=== PATIENT | male | born 1990 | race Caucasian/White ===

== ENCOUNTER 2017-01-29 22:48 | Emergency (ER) | payer OTHER ==
[~2017-01-29] VITALS: Ht 185.4 cm; Wt 149.7 kg
[2017-01-29] MEDS ORDERED: DICL25TA PO (23:00)
[2017-01-29] MEDS ORDERED: TIZA4CAP8 PO (23:00)
--- NOTE | 2017-01-29 23:56 | ED Back Pain ---
General Chief Complaint: Back Problems Stated Complaint: LOWER BACK/R LEG PAIN Nursing Triage Note: worsened chronic low back pain. Nursing Sepsis Screen: No Definite Risk Source of Information: Patient, Other Exam Limitations: No Limitations History of Present Illness Time Seen by Provider: 23:47 Initial Comments Patient presents to ER by private conveyance with chief complaint of lower back pain radiating from his right lumbar down to his right leg just past the knee. 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 Past couple days he's had some flare of his pain that has progressively gotten worse. He denies any falls, weakness, numbness, paralysis, incontinence of bowel or bladder. He says their next step was to do steroid injections and he gotten one steroid injection already about 6 months ago. If he felt that therapy then the next step was to consider surgery. He says he has a herniated disc in his low back. He denies any recent trauma or falls or fights or car wrecks. Allergies and Home Medications Allergies Coded Allergies: zinc (Verified Allergy, Unknown, 01/29/17) Home Medications Diclofenac Sodium 25 Mg Tablet.dr, Unknown Dose PO, (Reported) Tizanidine HCl 4 Mg Capsule, Unknown Dose PO, (Reported) Constitutional: No chills, No diaphoresis EENTM: No ear discharge, No ear pain Respiratory: No cough, No short of breath Cardiovascular: No chest pain, No palpitations Gastrointestinal: No abdominal pain, No constipation, No diarrhea, No dysphagia , No nausea Genitourinary: No discharge, No dysuria Musculoskeletal: see HPI, back pain, No joint pain Skin: No change in color, No pruritus, No rash Psychiatric/Neurological: Denies Headache, Denies Numbness, Paresthesia Past Tvwtusw-Ohpgxn-Xozgsl Hx Patient Social History Alcohol Use: Denies Use Recreational Drug Use: No Smoking Status: Never a Smoker 2nd Hand Smoke Exposure: No Recent Foreign Travel: No Contact w/Someone Who Travel: No Recent Infectious Disease Expo: No Recent Hopitalizations: No Immunizations Up To Date Tetanus Booster (TDap): Unknown Seasonal Allergies Seasonal Allergies: No Surgeries History of Surgeries: Yes (dental, cyst removal) Respiratory History of Respiratory Disorde: No Cardiovascular History of Cardiac Disorders: Yes Cardiac Disorders: Hypertension Neurological History of Neurological Disord: No Genitourinary History of Genitourinary Disor: No Gastrointestinal History of Gastrointestinal Di: No Musculoskeletal History of Musculoskeletal Dis: Yes Musculoskeletal Disorders: Degenerate Disk Disease, Chronic Back Pain Endocrine History of Endocrine Disorders: Yes (low blood glucose) HEENT History of HEENT Disorders: No Cancer History of Cancer: No Psychosocial History of Psychiatric Problem: No Integumentary History of Skin or Integumenta: No Blood Transfusions History of Blood Disorders: No Physical Exam Vital Signs Vital Sign - Last 12Hours 01/29/17 22:59 Temp 97.2 Pulse 91 Resp 18 B/P (MAP) 126/77 Pulse Ox 97 O2 Delivery Room Air Capillary Refill : Less Than 3 Seconds General Appearance: WD/WN, Mild Distress HEENT: PERRL/EOMI, Pharynx Normal Neck: Full Range of Motion, Normal Inspection Cardiovascular: Regular Rate, Rhythm, No Murmur, Normal Peripheral Pulses Respiratory: Chest Non Tender, Lungs Clear, Normal Breath Sounds Peripheral Pulses: 2+ Dorsalis Pedis (R), 2+ Left Dors-Pedis (L) Gastrointestinal: Non Tender, Soft Back: Normal Inspection, No Vertebral Tenderness, Other (right L5-S1 facet joint. Tender to palpation and re-creates his sciatic pain symptoms.) Extremity: Normal Capillary Refill, Non Tender, No Calf Tenderness, No Pedal Edema Neurologic/Psychiatric: Alert, Oriented x3, No Motor/Sensory Deficits, Normal Mood/Affect Skin: Normal Color, Warm/Dry Progress/Results/Core Measures Results/Orders My Orders Orders - TASHA STOUT Lidocaine 1% Injection (Xylocaine 1% Inj (01/30/17 00:00) Bupivacaine 0.5% Injection (Sensorcaine (01/30/17 00:00) Methylprednisolone Acetate Inj (Depo-Med (01/30/17 00:00) Medications Given in ED Current Medications Medications Dose Ordered Sig/Paulette Route Start Time Stop Time Status Last Admin Dose Admin Bupivacaine HCl 30 ml ONCE ONCE INJ 01/30/17 00:00 01/30/17 00:01 DC 01/30/17 00:00 30 ML Lidocaine HCl 20 ml ONCE ONCE INJ 01/30/17 00:00 01/30/17 00:01 DC 01/30/17 00:00 20 ML Methylprednisolone Acetate 80 mg ONCE ONCE IA 01/30/17 00:00 01/30/17 00:01 DC 01/29/17 23:59 80 MG Vital Signs/I&O Vital Sign - Last 12Hours 01/29/17 01/30/17 01/30/17 22:59 00:00 00:00 Temp 97.2 97.2 97.2 Pulse 91 Resp 18 B/P (MAP) 126/77 Pulse Ox 97 O2 Delivery Room Air Blood Pressure Mean: 93 Departure Impression Impression: Primary Impression: Lumbar radiculopathy Additional Impression: Sciatica associated with disorder of lumbar spine Disposition: HOME, SELF-CARE Condition: Stable Departure-Patient Inst. Decision time for Depature: 00:21 Referrals: NO,LOCAL PHYSICIAN (PCP/Family) Primary Care Physician Patient Instructions: Low Back Pain (DC), Radiculopathy (DC) Add. Discharge Instructions: Plan on establishing care with a local primary care physician for further workup of your back. He should see some improvement from the steroid injection in about 24 hours. Continue to take your diclofenac as prescribed for the next 2 weeks scheduled. He may also take Tylenol 1000 mg every 8 hours for breakthrough pain. Heat to your back may also help. Icy hot and a back brace would also be useful. If you're having back spasms you can use the Flexeril every 8 hours. All discharge instructions reviewed with patient and/or family. Voiced understanding. Scripts Cyclobenzaprine HCl (Cyclobenzaprine HCl) 10 Mg Tablet 10 MG PO Q8H Y for SPASMS, #20 TAB 0 Refills Prov: TASHA STOUT 01/30/17 Work/School Note: Work Release Form Date Seen in the Emergency Department: Jan 30, 2017 Return to Work: Feb 03, 2017 Restrictions: No Restrictions Copy Copies To 1: LAINA MCKINLEY TITUS J Jan 29, 2017 23:56
[2017-01-30] MEDS ORDERED: BUPIVACAINE 0.5% 30 ML (SENSORCAINE) VIAL INJ ONE
[2017-01-30] MEDS ORDERED: LIDOCAINE 1% INJ 20 ML (XYLOCAINE) VIAL INJ ONE
[2017-01-30] MEDS ORDERED: methylPREDNISolone 80 MG/ML (DEPO MEDROL) VIAL IA ONE
[2017-01-30] MEDS ORDERED: CYCL10TA9 PO (00:23)
[2017-01-30 00:26] VITALS: BP 122/74
== END 2017-01-30 00:28 | disposition home or self-care (01) ==
LOC: ER 22:52
DX: M51.16 Intervertebral disc disorders with radiculopathy, lumbar region (principal); I10 Essential (primary) hypertension
CPT/HCPCS: 99284

== ENCOUNTER 2018-10-10 07:52 | Emergency (ER) | payer BC, OTHER ==
[~2018-10-10] VITALS: Ht 185.4 cm; Wt 156.5 kg
[~2018-10-10 07:52] MED LIST: CYCL10TA9 PO; DICL25TA PO; TIZA4CAP8 PO
--- OUTSIDE RECORDS SUMMARY | 2018-10-10 07:57 | XMS REPORT | Continuity of Care Document ---
Author Organization Unknown Address Unknown Allergies There is no data. Medications There is no data. Problems There is no data. Procedures There is no data. Results There is no data. Encounters ACCT No. Visit Date/Time Discharge Status Pt. Type Provider Facility Loc./Unit Complaint [id number] 08/29/2018 09:20:00 08/29/2018 23:59:59 CLS Outpatient [facility]
[2018-10-10] MEDS ORDERED: BUPIVACAINE 0.5% 30 ML (SENSORCAINE) VIAL INJ ONE (08:15)
[2018-10-10] MEDS ORDERED: LIDOCAINE/EPI 2% 1:100,00 (XYLOCAINE) 20 ML VIAL INJ ONE (08:15)
[2018-10-10] MEDS ORDERED: methylPREDNISolone 40 MG/ML (DEPO MEDROL) VIAL IA ONE (08:15)
[2018-10-10] MEDS ORDERED: KETOROLAC 30 MG/ML VIAL IM ONE (08:15)
--- NOTE | 2018-10-10 08:16 | ED Back Pain ---
General Chief Complaint: Back Problems Stated Complaint: BACK/LEG PAIN Source of Information: Patient Exam Limitations: No Limitations History of Present Illness Date Seen by Provider: Oct 10, 2018 Time Seen by Provider: 07:55 Initial Comments Patient presents to ER by private conveyance with his mother and chief complaint that is 9 months post back laminectomy by Dr. Shpeherd. Couple weeks ago his pain started coming back significantly in his lower back radiating down his right leg. He's had no urinary incontinence or anesthesia but he has had some weakness in his leg where he had a fall a couple times in the last 2 weeks. 3 weeks ago he was started on Mobic 2 but he said it did not help so he was started in y sical therapy. He plans to go to physical therapy today but he says the pain was so intense that he was having a hard time even walking. He has no fevers chills diarrhea nausea vomiting or constipation. He's been using alternating Tylenol and ibuprofen 400 mg every 6 hours. His last dose of ibuprofen was yesterday 2:00 in the afternoon. He is on gabapentin. He left a phone message with his surgeon today. The plan was if physical therapy did not help to proceed to spinal injections. He is participating in exercise at the gym as well as water aerobics. He is not on a meal plan. He says his lost 15 pounds in the last 9 months intentionally. He uses tizanidine for muscle spasms. Allergies and Home Medications Allergies Coded Allergies: zinc (Verified Allergy, Unknown, 01/29/17) Home Medications Cyclobenzaprine HCl 10 Mg Tablet, 10 MG PO Q8H PRN for SPASMS Prescribed by: TASHA STOUT on 01/30/17 0023 Prednisone 20 Mg Tab, 40 MG PO DAILY Prescribed by: TASHA STOUT on 10/10/18 0823 Patient Home Medication List Home Medication List Reviewed: Yes Review of Systems Constitutional: No chills, No fever EENTM: No hearing loss, No ear pain Respiratory: No cough, No short of breath Cardiovascular: No chest pain, No edema Gastrointestinal: No abdominal pain, No nausea Genitourinary: No discharge, No dysuria Musculoskeletal: see HPI, back pain; No joint pain Skin: No pruritus, No rash Past Miibjjy-Bvxsoh-Ulwbiu Hx Patient Social History Alcohol Use: Denies Use Recreational Drug Use: No 2nd Hand Smoke Exposure: No Recent Foreign Travel: No Contact w/Someone Who Travel: No Recent Hopitalizations: No Physical Abuse: No Sexual Abuse: No Mistreated: No Fear: No Immunizations Up To Date Tetanus Booster (TDap): Unknown Seasonal Allergies Seasonal Allergies: No Past Medical History Surgeries: Yes (dental, cyst removal, back L5-S1) Respiratory: No Cardiac: Yes Hypertension Neurological: No Genitourinary: No Gastrointestinal: No Musculoskeletal: Yes Degenerate Disk Disease, Chronic Back Pain Endocrine: Yes (low blood glucose) HEENT: No Cancer: No Psychosocial: No Integumentary: No Blood Disorders: No Physical Exam Vital Signs Vital Signs - First Documented 10/10/18 07:57 Temp 98.1 Pulse 103 Resp 20 B/P (MAP) 161/109 (126) Pulse Ox 100 O2 Delivery Room Air Capillary Refill : Height, Weight, BMI Height: 6'1.00" Weight: 330lbs. oz. 149.380754id; BMI Method:Stated General Appearance: Mild Distress, Obese HEENT: PERRL/EOMI, Moist Mucous Membranes Neck: Full Range of Motion, Normal Inspection, Non Tender, Supple Cardiovascular: Regular Rate, Rhythm, Normal Peripheral Pulses Respiratory: No Accessory Muscle Use, No Respiratory Distress Peripheral Pulses: 2+ Radial Pulses (R), 2+ Radial Pulses (L) Back: Normal Inspection, Vertebral Tenderness (lumbar vertebral tenderness midline as well as the right L5-S1 facet joint direct palpation re-creates his s ymptoms.) Extremity: Normal Capillary Refill, Normal Inspection Neurologic/Psychiatric: Alert, Oriented x3, No Motor/Sensory Deficits, Other (slow, antalgic gait) Skin: Normal Color, Warm/Dry Procedures/Interventions Progress Patient was placed in the seated position on the bed and the skin over the L5-S1 facet joint was thoroughly cleaned with Betadine and then wiped with alcohol. The used a 3-1/2 inch 22-gauge spinal needle to access the joint space and injected 80 mg of Depo-Medrol, 3 mL of 2% lidocaine with epinephrine and 3 mL of 0.5% Marcaine. Patient tolerated procedure very well. Progress/Results/Core Measures Results/Orders My Orders Orders - TASHA STOUT Ketorolac Injection (Toradol Injection) (10/10/18 08:15) Methylprednisolone Acetate Inj (Depo-Med (10/10/18 08:15) Lidocaine/Epi 2% 1:100,000 (Xylocaine/Ep (10/10/18 08:15) Bupivacaine 0.5% Injection (Sensorcaine (10/10/18 08:15) Medications Given in ED Current Medications Medications Dose Ordered Sig/Paulette Route Start Time Stop Time Status Last Admin Dose Admin Bupivacaine HCl 30 ml ONCE ONCE INJ 10/10/18 08:15 10/10/18 08:16 DC 10/10/18 08:21 30 ML Ketorolac Tromethamine 60 mg ONCE ONCE IM 10/10/18 08:15 10/10/18 08:16 DC 10/10/18 08:20 60 MG Lidocaine/ Epinephrine 20 ml ONCE ONCE INJ 10/10/18 08:15 10/10/18 08:16 DC 10/10/18 08:21 20 ML Methylprednisolone Acetate 80 mg ONCE ONCE IA 10/10/18 08:15 10/10/18 08:16 DC 10/10/18 08:22 80 MG Vital Signs/I&O 10/10/18 07:57 Temp 98.1 Pulse 103 Resp 20 B/P (MAP) 161/109 (126) Pulse Ox 100 O2 Delivery Room Air Progress Progress Note : Time: 08:15 Progress Note Plan to give him Toradol and we have discussed starting steroids and a shot in his L5-S1 facet joint with lidocaine and Marcaine. Departure Impression Primary Impression: Lumbago with sciatica, right side Qualified Codes: M54.41 - Lumbago with sciatica, right side; G89.29 - Other chronic pain Disposition: 01 HOME, SELF-CARE Condition: Stable Departure-Patient Inst. Decision time for Depature: 08:33 Referrals: NO,LOCAL PHYSICIAN (PCP/Family) Primary Care Physician Patient Instructions: Low Back Pain (DC) Add. Discharge Instructions: Apply heat to your back, wear a back brace when possible and use topical creams such as icy hot and Biofreeze etc. Tylenol 1000 mg every 8 hours as necessary for pain. Ibuprofen 800 mg every 8 hours as necessary for pain. edging supervisor the prednisone and use 2 tablets daily for the next 5 days. Continue your low impact exercise program. Look into a meal plan to assisted living or weight loss goals. Follow-up with your surgeon. Continue your prescribed medicines. All discharge instructions reviewed with patient and/or family. Voiced understanding. Scripts Prednisone (Prednisone) 20 Mg Tab 40 MG PO DAILY for 5 Days, #10 TAB 0 Refills Prov: TASHA STOUT 10/10/18 TASHA STOUT Oct 10, 2018 08:16
--- NOTE | 2018-10-10 08:20 | NUR ---
set up for Dr Julien for back injection
[2018-10-10] MEDS ORDERED: PRD20T PO (08:23)
--- NOTE | 2018-10-10 08:30 | NUR ---
dr guerrero in room to do back injection
[2018-10-10] MEDS ORDERED: GABAPENTIN 300 MG CAPS (08:34)
[2018-10-10] MEDS ORDERED: TRAZODONE HCL 50 MG TABS (08:34)
[2018-10-10] MEDS ORDERED: CITALOPRAM HYDROBROMIDE 20 MG (08:34)
[2018-10-10 08:40] VITALS: BP 149/101
== END 2018-10-10 08:40 | disposition home or self-care (01) ==
LOC: EDUNIT# 07:52 → ER 07:53
DX: M54.41 Lumbago with sciatica, right side (principal); I10 Essential (primary) hypertension; Z98.1 Arthrodesis status; Z88.8 Allergy status to other drugs, medicaments and biological substances; Z79.52 Long term (current) use of systemic steroids
CPT/HCPCS: 96372; 99284

== ENCOUNTER 2018-12-04 03:11 | Emergency (ER) | payer BC ==
[~2018-12-04] VITALS: Ht 185.4 cm; Wt 156.5 kg
[~2018-12-04 03:11] MED LIST changes: +CITALOPRAM HYDROBROMIDE 20 MG; +GABAPENTIN 300 MG CAPS; +PRD20T PO; +TRAZODONE HCL 50 MG TABS
--- OUTSIDE RECORDS SUMMARY | 2018-12-04 03:19 | XMS REPORT | Continuity of Care Document ---
Author Organization Unknown Address Unknown Phone Unavailable Allergies There is no data. Medications There is no data. Problems There is no data. Procedures There is no data. Results There is no data. Encounters ACCT No. Visit Date/Time Discharge Status Pt. Type Provider Facility Loc./Unit Complaint [id number] 11/20/2018 09:20:00 11/20/2018 23:59:59 CLS Outpatient [facility], [facility]
[2018-12-04] MEDS ORDERED: BUP/EPI 0.5% 1:200,000 (SENSORCAINE) 30 ML VIAL INJ ONE (04:00)
[2018-12-04] MEDS ORDERED: LIDOCAINE 1% INJ 20 ML 20 ML VIAL INJ ONE (04:00)
[2018-12-04] MEDS ORDERED: KETOROLAC 30 MG/ML VIAL IVP ONE (04:00)
[2018-12-04] MEDS ORDERED: LIDOCAINE 2% VISCOUS 15 ML UDC PO ONE (04:00)
[2018-12-04] MEDS ORDERED: AMOX500C2 PO (04:03)
--- NOTE | 2018-12-04 04:03 | ED EENT ---
History of Present Illness General Chief Complaint: Dental Problems/Pain Stated Complaint: POSS ABSCESSED TOOTH,SWOLLEN JAW Source: patient, family (mom) Exam Limitations: no limitations History of Present Illness Date Seen by Provider: Dec 04, 2018 Time Seen by Provider: 03:47 Initial Comments Patient presents to ER by private conveyance with mom and chief complaint that he's for a week now had some swelling and pain after he cracked a tooth in his left lower molar. He thinks he now has an abscess. No fevers chills nausea vomiting. Take ibuprofen 800 mg every 8 hours. Pain woke him up from sleep tonight and he could not get back to sleep. Not on antibiotics. Has not seen a dentist. He occasionally smokes marijuana but he does not use tobacco products drink alcohol or other recreational drugs. Allergies and Home Medications Allergies Coded Allergies: zinc (Verified Allergy, Unknown, 10/10/18) Home Medications Amoxicillin 500 Mg Capsule, 500 MG PO TID Prescribed by: TASHA STOUT on 12/04/18 0403 Cyclobenzaprine HCl 10 Mg Tablet, 10 MG PO Q8H PRN for SPASMS Prescribed by: TASHA STOUT on 01/30/17 0023 Prednisone 20 Mg Tab, 40 MG PO DAILY Prescribed by: TASHA STOUT on 10/10/18 0823 Patient Home Medication List Home Medication List Reviewed: Yes Review of Systems Review of Systems Constitutional: No chills, No diaphoresis Eyes: Denies Blindness, Denies Blurred Vision Ears: Denies Dizziness, Denies Pain Nose: denies clots, denies congestion Mouth: see HPI; denies clots; pain, swelling Throat: denies pain, denies swelling Respiratory: No cough, No short of breath Past Tcicekg-Jfkmsy-Dtkfbd Hx Patient Social History Alcohol Use: Denies Use Recreational Drug Use: Yes Drug of Choice: occ MJ Smoking Status: Never a Smoker 2nd Hand Smoke Exposure: No Recent Foreign Travel: No Contact w/Someone Who Travel: No Recent Hopitalizations: No Immunizations Up To Date Tetanus Booster (TDap): Unknown Seasonal Allergies Seasonal Allergies: No Past Medical History Surgeries: Yes (dental, cyst removal, back L5-S1) Respiratory: No Cardiac: Yes Hypertension Neurological: No Genitourinary: No Gastrointestinal: No Musculoskeletal: Yes Degenerate Disk Disease, Chronic Back Pain Endocrine: Yes (low blood glucose) HEENT: No Cancer: No Psychosocial: No Integumentary: No Blood Disorders: No Physical Exam Vital Signs Vital Signs - First Documented 12/04/18 03:30 Temp 97.4 Pulse 109 Resp 18 B/P (MAP) 165/99 (121) Height, Weight, BMI Height: 6'1.00" Weight: 345lbs. oz. 156.738996fo; BMI Method:Stated General Appearance: WD/WN, mild distress Eyes: bilateral eye normal inspection, bilateral eye PERRL, bilateral eye EOMI Ears: bilateral ear auricle normal, bilateral ear canal normal Nose: normal inspection; No active bleeding Mouth/Throat: other (moderate to extensive dental caries with swelling of the soft tissues and gingiva around the lower left molars that is exquisitely tender to palpation. No evidence of fluctuance or abscess.) Procedures/Interventions Additional Procedures: Peripheral Nerve Block Progress Patient was placed supine position with mouth open and using her fingers. Palpated the landmarks of the left mandibular ramus. We will place the needle just superior to the exit of the alveolar nerve and injected 1-1/2 cc of 1% lidocaine as well as 1/2 cc of 0.5% bupivacaine without epinephrine. Patient had Zaragoza anesthesia and tolerated the procedure well. The used a 1-1/2 inch 25- gauge needle. Progress/Results/Core Measures Results/Orders My Orders Orders - TASHA STOUT Ketorolac Injection (Toradol Injection) (12/04/18 04:00) Lidocaine 2% Viscous 15 Ml (Xylocaine Vi (12/04/18 04:00) Lidocaine 1% Inj 20 Ml (Xylocaine 1% Inj (12/04/18 04:00) Bupivacaine 0.5% W/Epi Inj (Sensorcaine (12/04/18 04:00) Bupivacaine 0.5% Injection (Sensorcaine (12/04/18 04:15) Medications Given in ED Current Medications Medications Dose Ordered Sig/Paulette Route Start Time Stop Time Status Last Admin Dose Admin Bupivacaine HCl 30 ml ONCE ONCE INJ 12/04/18 04:15 12/04/18 04:16 DC 12/04/18 04:09 1.5 ML Lidocaine HCl 15 ml ONCE ONCE PO 12/04/18 04:00 12/04/18 04:01 DC 12/04/18 04:09 15 ML Lidocaine HCl 20 ml ONCE ONCE INJ 12/04/18 04:00 12/04/18 04:01 DC 12/04/18 04:08 1.5 ML Vital Signs/I&O 12/04/18 03:30 Temp 97.4 Pulse 109 Resp 18 B/P (MAP) 165/99 (121) Progress Progress Note : Time: 04:01 Progress Note Plan to do an inferior alveolar nerve block 1% lidocaine and 0.5% Marcaine with epinephrine. Viscous lidocaine take-home pack, amoxicillin. Departure Impression Primary Impression: Dental abscess Disposition: HOME, SELF-CARE Condition: Improved Departure-Patient Inst. Decision time for Depature: 04:01 Referrals: MICHAEL BURR MD (PCP) Primary Care Physician [facility] (Family) Primary Care Physician Patient Instructions: Dental Pain (DC) Add. Discharge Instructions: Continue to use ibuprofen 800 mg every 8 hours as necessary for pain. Tylenol 1000 mg every 8 hours as necessary for pain. Warm compresses applied outside the cheek. Take the amoxicillin one capsule 3 times a day for the next week. Follow-up with the dentist. Viscous lidocaine applied directly to some gauze and push down over the painful tooth every 4 hours as needed for breakthrough pain. All discharge instructions reviewed with patient and/or family. Voiced understanding. Scripts Amoxicillin (Amoxicillin) 500 Mg Capsule 500 MG PO TID, #21 CAP 0 Refills Prov: TASHA STOUT 12/04/18 TASHA STOUT Dec 04, 2018 04:03
[2018-12-04] MEDS ORDERED: BUPIVACAINE 0.5% 30 ML (SENSORCAINE) VIAL INJ ONE (04:15)
[2018-12-04 04:22] VITALS: BP 160/98
== END 2018-12-04 04:24 | disposition home or self-care (01) ==
LOC: EDUNIT# 03:11 → ER 03:15
DX: K04.7 Periapical abscess without sinus (principal); I10 Essential (primary) hypertension; F12.10 Cannabis abuse, uncomplicated; Z88.8 Allergy status to other drugs, medicaments and biological substances; Z79.52 Long term (current) use of systemic steroids
CPT/HCPCS: 99283

== ENCOUNTER 2019-01-05 08:34 | Emergency (ER) | payer BC ==
[~2019-01-05] VITALS: Ht 185.4 cm; Wt 156.5 kg
[~2019-01-05 08:34] MED LIST changes: +AMOX500C2 PO
[2019-01-05] MEDS ORDERED: EPINEPHrine INJECTION 1 MG/ML AMP ONE (09:13)
--- NOTE | 2019-01-05 09:27 | ED Back Pain ---
General Chief Complaint: Back Problems Stated Complaint: BACK PAIN Nursing Triage Note: PT TO ROOM 07 VIA W/C WITH C/O BACK PAIN STARTING SUNDAY. PT STATES HE HAS HAD BACK SURGERY A COUPLE YEARS AGO. PAIN STARTED SUNDAY BUT IS WORSE TODAY. PT STATES HAS TRIED OTC MEDS WITHOUT RELIEF. Nursing Sepsis Screen: No Definite Risk Source of Information: Patient, Family Exam Limitations: No Limitations History of Present Illness Date Seen by Provider: Jan 05, 2019 Time Seen by Provider: 09:06 Initial Comments Patient presents to ER by private conveyance with his significant other and chief complaint for the past several days been having progressively worsening acute exacerbation of his chronic back pain. He says he feels it in his thoracic back just above where he had his lumbar laminectomy for spinal stenosis by Dr. Allen at [place], [place] and January 2018. He is now feeling some pain radiating around to his left flank spasm and worsening of his chronic sciatica down his right leg to the point his foot is numb he has decreased sensation in his calf up to the level of the knee. He does not have any urinary hesitancy or difficulty urinating but is worried with this flank pain about a bladder infection. He's not had bladder infections before. No fevers chills cough shortness of breath. No itching or burning or rash at the site of the left flank pain. He has been using ibuprofen 800 mg 3 times a day with his last dose being last night. He has also used his cyclobenzaprine 3 times a day 10 mg. He does not use opiates. He was referred by his surgeon to go to pain management and they wanted to do epidurals but he could not afford the co-pay so he has not done that yet. He was following with [facility] but is now planning to set up with [facility] [place]. He was in physical therapy but was told he needs another prescription that he wants to come back. Using topical creams, lidocaine, salon pas, Voltaren. He has not been on steroids for about 6 months. Allergies and Home Medications Allergies Coded Allergies: zinc (Verified Allergy, Unknown, 10/10/18) Home Medications Amoxicillin 500 Mg Capsule, 500 MG PO TID Prescribed by: TASHA STOUT on 12/04/18 0403 Cyclobenzaprine HCl 10 Mg Tablet, 10 MG PO Q8H PRN for SPASMS Prescribed by: TASHA STOUT on 01/30/17 0023 Prednisone 20 Mg Tab, 40 MG PO DAILY Prescribed by: TASHA STOUT on 10/10/18 0823 Patient Home Medication List Home Medication List Reviewed: Yes Review of Systems Constitutional: No chills, No diaphoresis EENTM: No ear discharge, No ear pain Respiratory: No cough, No short of breath Cardiovascular: No chest pain, No palpitations Gastrointestinal: No abdominal pain, No constipation, No diarrhea, No nausea Genitourinary: No discharge, No dysuria, No hematuria, No hesitancy Musculoskeletal: see HPI, back pain Psychiatric/Neurological: See HPI, Numbness (right foot) Past Kvxqwvd-Qppoic-Ibqupk Hx Patient Social History Alcohol Use: Rarely Uses Recreational Drug Use: Yes Drug of Choice: occ MJ Smoking Status: Never a Smoker 2nd Hand Smoke Exposure: No Recent Foreign Travel: No Contact w/Someone Who Travel: No Recent Infectious Disease Expo: No Recent Hopitalizations: No Immunizations Up To Date Tetanus Booster (TDap): Unknown Seasonal Allergies Seasonal Allergies: No Past Medical History Surgeries: Yes (dental, cyst removal, back L5-S1) Respiratory: No Cardiac: Yes Hypertension Neurological: No Genitourinary: No Gastrointestinal: No Musculoskeletal: Yes Degenerate Disk Disease, Chronic Back Pain Endocrine: Yes (low blood glucose) HEENT: No Cancer: No Psychosocial: Yes Sleep Difficulties Integumentary: No Blood Disorders: No Physical Exam Vital Signs Vital Signs - First Documented 01/05/19 09:09 Temp 98.0 Pulse 115 Resp 20 B/P (MAP) 168/124 (139) Pulse Ox 99 O2 Delivery Room Air Capillary Refill : Less Than 3 Seconds Height, Weight, BMI Height: 6'1.00" Weight: 345lbs. oz. 156.481330dt; BMI Method:Stated General Appearance: WD/WN, Mild Distress HEENT: Pharynx Normal, Moist Mucous Membranes Neck: Full Range of Motion, Normal Inspection Cardiovascular: Regular Rate, Rhythm, No Edema Respiratory: Lungs Clear, Normal Breath Sounds, No Accessory Muscle Use, No Respiratory Distress Peripheral Pulses: 2+ Dorsalis Pedis (R), 2+ Left Dors-Pedis (L) Back: Normal Inspection, Muscle Spasm (bilateral thoracic and lumbar spine), Vertebral Tenderness (thoracic and lumbar spine), Other (reach remission of sciatic symptoms and pain on direct palpation over L5-S1 facet joint on the right) Extremity: Normal Capillary Refill, Non Tender, No Calf Tenderness Neurologic/Psychiatric: Alert, Oriented x3; No Motor Weakness; Sensory Deficit (decreased sensation right lower extremity below the knee) Skin: Normal Color, Warm/Dry; No Rash Progress/Results/Core Measures Results/Orders Lab Results Laboratory Tests Test 01/05/19 09:46 Range/Units Urine Color YELLOW Urine Clarity CLEAR Urine pH 5 5-9 Urine Specific [place] 1.020 1.016-1.022 Urine Protein NEGATIVE NEGATIVE Urine Glucose (UA) NEGATIVE NEGATIVE Urine Ketones NEGATIVE NEGATIVE Urine Nitrite NEGATIVE NEGATIVE Urine Bilirubin NEGATIVE NEGATIVE Urine Urobilinogen NORMAL NORMAL MG/DL Urine Leukocyte Esterase NEGATIVE NEGATIVE Urine RBC (Auto) NEGATIVE NEGATIVE Urine RBC NONE /HPF Urine WBC RARE /HPF Urine Squamous Epithelial Cells RARE /HPF Urine Crystals NONE /LPF Urine Bacteria NEGATIVE /HPF Urine Casts NONE /LPF Urine Mucus SMALL H /LPF Urine Culture Indicated NO My Orders Orders - TASHA STOUT Epinephrine 1 Mg Injection (Adrenalin I (01/05/19 09:13) Methylprednisolone Acetate Inj (Depo-Med (01/05/19 09:30) Bupivacaine 0.5% W/Epi Inj (Sensorcaine (01/05/19 09:30) Lidocaine 1% Inj 20 Ml (Xylocaine 1% Inj (01/05/19 09:30) Ketorolac Injection (Toradol Injection) (01/05/19 09:30) Orphenadrine Injection (Norflex Injectio (01/05/19 09:30) Ua Culture If Indicated (01/05/19 09:20) Ct Thoracic/Lumbar Spine Wo (01/05/19 09:22) Ketorolac Injection (Toradol Injection) (01/05/19 09:45) Orphenadrine Injection (Norflex Injectio (01/05/19 09:45) Ketorolac Injection (Toradol Injection) (01/05/19 10:15) Medications Given in ED Current Medications Medications Dose Ordered Sig/Paulette Route Start Time Stop Time Status Last Admin Dose Admin Bupivacaine HCl/ Epinephrine Bitart 10 ml ONCE ONCE INJ 01/05/19 09:30 01/05/19 09:31 DC 01/05/19 09:50 10 ML Ketorolac Tromethamine 30 mg ONCE ONCE IVP 01/05/19 09:45 01/05/19 09:46 DC 01/05/19 09:35 30 MG Ketorolac Tromethamine 30 mg ONCE ONCE IVP 01/05/19 10:15 01/05/19 10:16 DC 01/05/19 10:36 30 MG Lidocaine HCl 20 ml ONCE ONCE INJ 01/05/19 09:30 01/05/19 09:31 DC 01/05/19 09:50 20 ML Methylprednisolone Acetate 80 mg ONCE ONCE IA 01/05/19 09:30 01/05/19 09:31 DC 01/05/19 09:50 80 MG Orphenadrine Citrate 60 mg ONCE ONCE IV 01/05/19 09:45 01/05/19 09:46 DC 01/05/19 09:38 60 MG Vital Signs/I&O 01/05/19 09:09 Temp 98.0 Pulse 115 Resp 20 B/P (MAP) 168/124 (139) Pulse Ox 99 O2 Delivery Room Air Blood Pressure Mean: 139 Progress Progress Note : Time: 09:30 Progress Note Does not appear to be shingles. Appears to be a exacerbation of his chronic back pain. Plan to give him Depo-Medrol, bupivacaine and lidocaine at the L5-S1 facet joint to help with his right leg sciatica. Plan to get imaging since he's having new numbness at the level of his right foot. He says he had a benign nodule found at the thoracic level on the left side by his surgeon and she told him not to worry about it that they would just reimage it 6 months but he never followed up for imaging. He has had MRIs of his back prior to the surgery in January 2018 but this was done at [place]. The plan would be to do a noncontrast CT of the thoracolumbar spine for any acute changes. If not then we'll do steroids, numbing medicine, put him on prednisone and given some Toradol and Norflex. Urinalysis Diagnostic Imaging Diagonstic Imaging: CT (without IV contrast) Plain Films/CT/US/NM/MRI: other (thoracolumbar spine.) Comments NAME: JANELL AGUILAR Delia MED REC#: [id number] PT STATUS: REG ER : 1990 PHYSICIAN: TASHA STOUT MD ADMIT DATE: 01/05/19/ER Draft Date of Exam:01/05/19 CT THORACIC/LUMBAR SPINE WO PROCEDURE: CT thoracic and lumbar spine without contrast. TECHNIQUE: Multiple contiguous axial images were obtained through the thoracic and lumbar spine without the use of intravenous contrast. Sagittal and coronal reformations were then performed. Date: January 05, 2019. Indication: 28-year-old male, mid and lower back pain extending to the right leg. Comparison: None. Findings: There are bilateral laminectomy changes of L5, L4, and L3. There are very mild facet degenerative changes bilaterally at L2-L3. The alignment of the lumbar spine is unremarkable. There are posterior disc osteophyte complexes at L1-L2, L2-L3, L3-L4, and L4-L5. CT is limited for assessment of disc pathology as well as additional non-bony causes of foraminal and spinal stenosis. This evaluation would be more optimal with MRI. There is no identified compression deformity or other fracture of the lumbar spine. The sacroiliac joints are unremarkable in their partially visualized portions. The alignment of the thoracic spine is unremarkable. There is no identified thoracic spine compression deformity or fracture. There are mild disc degenerative changes of the thoracic spine. There is no identified bone lesion. The visualized portions of the lungs are clear. Impression: 1. Bilateral laminectomy changes of L3, L4, and L5. 2. Multilevel disc degenerative changes of the lumbar spine with posterior disc osteophyte complexes at L1-L2, L2-L3, L3-L4, and L4-L5. CT is limited for assessment of disc pathology as well as evaluation of additional non-bony causes of foraminal and spinal stenosis. This would be more optimally evaluated with MRI. 3. Unremarkable alignment of the thoracic and lumbar spine. 4. No identified acute fracture of the thoracic or lumbar spine. Dictated on workstation # [id number] Dict: 01/05/19 1032 Trans: 01/05/19 1100 [facility] [id number] Interpreted by: CELSA SHIRLEY MD Electronically signed by: Reviewed: Reviewed by Me Departure Impression Primary Impression: Thoracolumbar back pain Additional Impression: Sciatica of right side associated with disorder of lumbar spine Disposition: HOME, SELF-CARE Condition: Stable Departure-Patient Inst. Decision time for Depature: 11:11 Referrals: [facility] (PCP/Family) Primary Care Physician Patient Instructions: Low Back Pain (DC) Add. Discharge Instructions: Keep your follow-up with primary care as well as consider going back to the surgeon to look for alternative options. Physical therapy can be helpful. Continue to use topical creams, heating pads, ibuprofen, Tylenol and Flexeril. All discharge instructions reviewed with patient and/or family. Voiced understanding. Scripts Cyclobenzaprine HCl (Cyclobenzaprine HCl) 10 Mg Tablet 10 MG PO Q8H PRN for SPASMS, #15 TAB 0 Refills Prov: TASHA STOUT 01/05/19 Naproxen (Naprosyn) 500 Mg Tablet 500 MG PO BID, #30 TAB 0 Refills Prov: TASHA STOUT 01/05/19 Work/School Note: Work Release Form Date Seen in the Emergency Department: Jan 05, 2019 Return to Work: Jan 07, 2019 Restrictions: No Restrictions TASHA STOUT Jan 05, 2019 09:27
[2019-01-05] MEDS ORDERED: LIDOCAINE 1% INJ 20 ML 20 ML VIAL INJ ONE (09:30)
[2019-01-05] MEDS ORDERED: methylPREDNISolone 40 MG/ML (DEPO MEDROL) VIAL IA ONE (09:30)
[2019-01-05] MEDS ORDERED: BUP/EPI 0.5% 1:200,000 (SENSORCAINE) 30 ML VIAL INJ ONE (09:30)
[2019-01-05] MEDS ORDERED: KETOROLAC 30 MG/ML VIAL IM ONE (09:30)
[2019-01-05] MEDS ORDERED: ORPHENADRINE 60 MG/2 ML (NORFLEX) AMP IM ONE (09:30)
[2019-01-05] MEDS ORDERED: ORPHENADRINE 60 MG/2 ML (NORFLEX) AMP IV ONE (09:45)
[2019-01-05] MEDS ORDERED: KETOROLAC 30 MG/ML VIAL IVP ONE ×2 (09:45→10:15)
[2019-01-05 09:52] LABS: BILIRUBIN,URINE NEGATIVE (NEGATIVE); CLARITY,URINE CLEAR; COLOR,URINE YELLOW; GLUCOSE, URINE (UA) NEGATIVE (NEGATIVE); KETONES,URINE NEGATIVE (NEGATIVE); LEUKOCYTE ESTERASE ,URINE NEGATIVE (NEGATIVE); NITRITE,URINE NEGATIVE (NEGATIVE); PH,URINE 5 (5-9); PROTEIN,URINE NEGATIVE (NEGATIVE); UROBILINOGEN,URINE NORMAL (NORMAL)
[2019-01-05 10:01] LABS: BACTERIA,URINE NEGATIVE /HPF; SQUAMOUS EPITHELIAL CELL,UR RARE /HPF; WBC,URINE RARE /HPF
--- NOTE | 2019-01-05 11:01 | Diagnostic Imaging Report ---
PROCEDURE: CT thoracic and lumbar spine without contrast. TECHNIQUE: Multiple contiguous axial images were obtained through the thoracic and lumbar spine without the use of intravenous contrast. Sagittal and coronal reformations were then performed. Date: January 05, 2019. Indication: 28-year-old male, mid and lower back pain extending to the right leg. Comparison: None. Findings: There are bilateral laminectomy changes of L5, L4, and L3. There are very mild facet degenerative changes bilaterally at L2-L3. The alignment of the lumbar spine is unremarkable. There are posterior disc osteophyte complexes at L1-L2, L2-L3, L3-L4, and L4-L5. CT is limited for assessment of disc pathology as well as additional non-bony causes of foraminal and spinal stenosis. This evaluation would be more optimal with MRI. There is no identified compression deformity or other fracture of the lumbar spine. The sacroiliac joints are unremarkable in their partially visualized portions. The alignment of the thoracic spine is unremarkable. There is no identified thoracic spine compression deformity or fracture. There are mild disc degenerative changes of the thoracic spine. There is no identified bone lesion. The visualized portions of the lungs are clear. Impression: 1. Bilateral laminectomy changes of L3, L4, and L5. 2. Multilevel disc degenerative changes of the lumbar spine with posterior disc osteophyte complexes at L1-L2, L2-L3, L3-L4, and L4-L5. CT is limited for assessment of disc pathology as well as evaluation of additional non-bony causes of foraminal and spinal stenosis. This would be more optimally evaluated with MRI. 3. Unremarkable alignment of the thoracic and lumbar spine. 4. No identified acute fracture of the thoracic or lumbar spine. Dictated by: Dictated on workstation # [id number]
[2019-01-05] MEDS ORDERED: NAPR-1071 PO (11:20)
[2019-01-05] MEDS ORDERED: CYCL10TA9 PO (11:20)
[2019-01-05] MEDS ORDERED: PRD20T PO (11:23)
[2019-01-05 11:51] VITALS: BP 186/101
== END 2019-01-05 11:51 | disposition home or self-care (01) ==
LOC: EDUNIT# 08:34 → ER 08:35
DX: M54.41 Lumbago with sciatica, right side (principal); M54.6 Pain in thoracic spine; I10 Essential (primary) hypertension; Z98.1 Arthrodesis status; Z88.8 Allergy status to other drugs, medicaments and biological substances; Z79.52 Long term (current) use of systemic steroids
CPT/HCPCS: 72128; 72131; 81000

== ENCOUNTER → 2019-01-27 | Outpatient (CLI) | payer BC ==
[~2019-01-27] MED LIST changes: +GADOBUTROL 15 MMOL/15 ML (GADAVIST) VIAL IV ONE; +NAPR-1071 PO
--- NOTE | 2019-01-27 14:35 | Diagnostic Imaging Report ---
PROCEDURE: MRI lumbar spine with and without contrast. TECHNIQUE: Multiplanar, multisequence MRI of the lumbar spine was performed with and without contrast. INDICATION: Low back pain. Patient with prior lumbar spine surgery in 2018. COMPARISON: No prior MRI studies are available for comparison. FINDINGS: There is some straightening of the normal lumbar lordotic curvature. Vertebral body heights are maintained. No acute compression fracture is seen. No geographic marrow lesion is identified. There is some mild desiccation of the discs from L1 through L4-L5 compatible with degenerative disc disease. Patient has had decompression laminectomy from the L3 through L5 levels. The conus is unremarkable at the T12-L1 level. T12-L1: Central canal is widely patent. The neural foramina are widely patent. L1-L2: There is a prominent wide-based midline disc bulge indenting the ventral thecal sac. There is significant narrowing of the canal which measures approximate 5 mm in AP diameter. No significant neural foraminal narrowing is seen. The lateral recesses are narrowed. L2-L3: Wide-based midline disc bulge indents the ventral thecal sac. Central canal remains patent. There is some narrowing of the lateral recesses bilaterally. There also appears to be mild bilateral neural foraminal narrowing. L3-L4: Wide-based midline disc bulge indents the ventral thecal sac. Central canal remains widely patent. There is narrowing of the lateral recesses bilaterally. There is also brfq-bf-curvnwct bilateral neural foraminal narrowing. L4-L5: Wide-based midline disc bulge indents the ventral thecal sac, slightly asymmetric to the right. The central canal remains patent, but there is significant narrowing of the lateral recesses bilaterally, greatest on the right. There is also utbubykq-da-osrnqxjzzmz bilateral neural foraminal stenosis. L5-S1: Broad-based disc/osteophyte complex is present. Central canal remains widely patent. There is significant narrowing of the lateral recesses bilaterally. There is also significant bilateral neural foraminal stenosis. Postcontrast images are unremarkable. There are some postsurgical changes in the soft tissues posterior to the thecal sac, but no fluid collections are seen. Paraspinous tissues are unremarkable. IMPRESSION: Postop changes of decompression laminectomy at L3 through L5. There are multilevel degenerative changes with multilevel disc bulging resulting in central canal, lateral recess, and neural foraminal stenosis described level by level above. No abnormal enhancement following contrast administration is identified. Dictated by: Dictated on workstation # [id number]
== END ==
LOC: RAD 12:45
PROVIDERS: ATTEND Nurse Practitioner Family
DX: M48.07 Spinal stenosis, lumbosacral region (principal); M47.816 Spondylosis without myelopathy or radiculopathy, lumbar region; M51.16 Intervertebral disc disorders with radiculopathy, lumbar region; Z98.890 Other specified postprocedural states
CPT/HCPCS: 72158

== ENCOUNTER 2019-01-30 19:41 | Outpatient (CLI) | payer BC ==
[~2019-01-30 19:41] MED LIST changes: -GADOBUTROL 15 MMOL/15 ML (GADAVIST) VIAL IV ONE
== END 2019-01-31 05:17 | disposition home or self-care (01) ==
LOC: SLEEP 19:41
PROVIDERS: ATTEND Nurse Practitioner Family
DX: G47.33 Obstructive sleep apnea (adult) (pediatric) (principal); M54.41 Lumbago with sciatica, right side; F39 Unspecified mood [affective] disorder; E66.01 Morbid (severe) obesity due to excess calories; Z68.42 Body mass index [BMI] 45.0-49.9, adult
CPT/HCPCS: 95811

== ENCOUNTER 2019-05-14 17:00 | Emergency (ER) | payer BC ==
[~2019-05-14] VITALS: Ht 185 cm; Wt 152.8 kg
[2019-05-14] MEDS ORDERED: KETOROLAC 60 MG/2 ML VIAL IM ONE (17:15)
[2019-05-14] MEDS ORDERED: ORPHENADRINE 60 MG/2 ML (NORFLEX) AMP IM ONE (17:15)
[2019-05-14] MEDS ORDERED: LOSA1TAB26 (17:16)
[2019-05-14] MEDS ORDERED: DULO30CA49 (17:16)
--- NOTE | 2019-05-14 17:18 | ED Back Pain ---
General Chief Complaint: Back Problems Stated Complaint: LOWER BACK PAIN Nursing Triage Note: RIGHT LOWER BACK PAIN X3 DAYS. WAS SEEN BY AND PRESCRIBED ULTRAM WHICH HE IS OUT OF. Nursing Sepsis Screen: No Definite Risk Source of Information: Patient Exam Limitations: No Limitations History of Present Illness Date Seen by Provider: May 14, 2019 Time Seen by Provider: 17:16 Initial Comments To ER with any acute worsening of his chronic low back pain. This acute worsening began 3 days ago when he slipped and fell while taking his dog out la nding on his low back. He followed up with primary care same day had x-rays done which were unremarkable and was given Ultram. Fails to improve so he presents to the emergency room today. No loss of bowel or bladder control no saddle anesthesia. The pain radiates down the right leg terminating at the ankle. He has a history of lumbar spinal stenosis treated surgically several years ago. Location: Lumbar Spine Timing/Duration: 2-3 Days Severity: Moderate Pain/Injury Location: Back Associated Symptoms: lower back pain Allergies and Home Medications Allergies Coded Allergies: zinc (Verified Allergy, Unknown, 10/10/18) Patient Home Medication List Home Medication List Reviewed: Yes Review of Systems Constitutional: see HPI EENTM: see HPI Respiratory: no symptoms reported Cardiovascular: no symptoms reported Genitourinary: no symptoms reported Musculoskeletal: see HPI, back pain Skin: no symptoms reported Psychiatric/Neurological: No Symptoms Reported Past Slereur-Cifwuf-Pryrns Hx Patient Social History Alcohol Use: Rarely Uses Recreational Drug Use: No (DENEIS POT AT THIS VISIT) Drug of Choice: occ MJ Smoking Status: Never a Smoker 2nd Hand Smoke Exposure: No Recent Foreign Travel: No Contact w/Someone Who Travel: No Recent Infectious Disease Expo: No Recent Hopitalizations: No Immunizations Up To Date Tetanus Booster (TDap): Unknown Seasonal Allergies Seasonal Allergies: No Past Medical History Surgeries: Yes (dental, cyst removal, back L5-S1) Respiratory: No Cardiac: Yes Hypertension Neurological: No Genitourinary: No Gastrointestinal: No Musculoskeletal: Yes Degenerate Disk Disease, Chronic Back Pain Endocrine: Yes (low blood glucose) HEENT: No Cancer: No Psychosocial: Yes Sleep Difficulties Integumentary: No Blood Disorders: No Physical Exam Vital Signs Vital Signs - First Documented 05/14/19 17:10 Temp 36.5 Pulse 118 Resp 16 B/P (MAP) 157/81 (106) Pulse Ox 100 O2 Delivery Room Air Capillary Refill : Less Than 3 Seconds Height, Weight, BMI Height: 6'1.00" Weight: 345lbs. oz. 156.938195xi; 44.00 BMI Method:Stated General Appearance: No Apparent Distress, WD/WN, Obese HEENT: PERRL/EOMI, TMs Normal Neck: Full Range of Motion, Normal Inspection Respiratory: No Accessory Muscle Use, No Respiratory Distress Gastrointestinal: Normal Bowel Sounds, Non Tender, Soft Back: No Muscle Spasm, No Vertebral Tenderness (tenderness over the right sacr oiliac region); Other (old scar midline lumbar spine without ecchymosis visualized) Extremity: Normal Capillary Refill, Normal Inspection Neurologic/Psychiatric: Alert, Oriented x3 Skin: Normal Color, Warm/Dry Progress/Results/Core Measures Results/Orders My Orders Orders - DEYSI GARCIA APRN Ct Lumbar Spine Wo (05/14/19 17:15) Ketorolac Injection (Toradol Injection) (05/14/19 17:15) Orphenadrine Injection (Norflex Injectio (05/14/19 17:15) Medications Given in ED Current Medications Medications Dose Ordered Sig/Paulette Route Start Time Stop Time Status Last Admin Dose Admin Ketorolac Tromethamine 60 mg ONCE ONCE IM 05/14/19 17:15 05/14/19 17:17 DC 05/14/19 17:23 60 MG Orphenadrine Citrate 60 mg ONCE ONCE IM 05/14/19 17:15 05/14/19 17:17 DC 05/14/19 17:22 60 MG Vital Signs/I&O 05/14/19 17:10 Temp 36.5 Pulse 118 Resp 16 B/P (MAP) 157/81 (106) Pulse Ox 100 O2 Delivery Room Air Blood Pressure Mean: 106 Departure Impression Primary Impression: Lumbar radiculopathy Disposition: 01 HOME, SELF-CARE Condition: Stable Departure-Patient Inst. Decision time for Depature: 17:24 Referrals: [facility] (PCP/Family) Primary Care Physician Patient Instructions: Radiculopathy (DC) Add. Discharge Instructions: 1. Medication as directed 2. Follow-up with your doctor next week 3. All discharge instructions reviewed with patient and/or family. Voiced understanding. Scripts Methocarbamol (Robaxin-750) 750 Mg Tablet 750 MG PO Q4H PRN for PAIN-MODERATE (5-7), #20 TAB Prov: DEYSI GARCIA APRN 05/14/19 Prednisone (Prednisone) 20 Mg Tab 40 MG PO DAILY, #8 TAB Take 3 tabs(60mg)daily, decrease by 1/2 tab(10mg)daily. Prov: DEYSI GARCIA APRN 05/14/19 Work/School Note: Work Release Form Date Seen in the Emergency Department: May 14, 2019 Return to Work: May 16, 2019 DEYSI GARCIA APRN May 14, 2019 17:18
--- NOTE | 2019-05-14 17:56 | NUR ---
PT STATES PAIN IS STILL THERE BUT IT IS MORE TOLERABLE.
--- NOTE | 2019-05-14 18:02 | Diagnostic Imaging Report ---
PROCEDURE: CT lumbar spine without contrast. TECHNIQUE: Multiple contiguous axial images were obtained through the lumbar spine without the use of intravenous contrast. Sagittal and coronal reformations were then performed. Auto Exposure Controls were utilized during the CT exam to meet ALARA standards for radiation dose reduction. INDICATION: Back pain after fall. FINDINGS: The alignment of the lumbar spine is normal. The vertebral body heights are well-maintained. There is no spondylolysis or spondylolisthesis. No fractures are identified. There has been an L3, L4 and L5 laminectomy. There is some broad-based annular bulging at L2-L3 with moderate spinal stenosis exacerbated by some facet disease. The aorta is nonaneurysmal. Kidneys are normal in appearance. IMPRESSION: Broad-based annular bulging at L2-L3 with moderate spinal stenosis exacerbated by facet disease. Otherwise diffuse lumbar spondylosis with previous L3, L4 and L5 laminectomy. Dictated by: Dictated on workstation # [id number]
[2019-05-14] MEDS ORDERED: METH-313 PO (18:16)
[2019-05-14] MEDS ORDERED: PRD20T PO (18:16)
[2019-05-14 18:20] VITALS: BP 157/81
== END 2019-05-14 18:20 | disposition home or self-care (01) ==
LOC: EDUNIT# 17:00 → ER 17:01
DX: M54.16 Radiculopathy, lumbar region (principal); I10 Essential (primary) hypertension; Z88.8 Allergy status to other drugs, medicaments and biological substances; W01.0XXA Fall on same level from slipping, tripping and stumbling without subsequent striking against object, initial encounter; Y93.01 Activity, walking, marching and hiking
CPT/HCPCS: 72131; 96372

== ENCOUNTER 2019-05-25 15:09 | Emergency (ER) | payer BC ==
[~2019-05-25] VITALS: Ht 185 cm; Wt 139.6 kg
[~2019-05-25 15:09] MED LIST changes: +DULO30CA49; +LOSA1TAB26; +METH-313 PO
[2019-05-25] MEDS ORDERED: TRAZODONE (15:20)
[2019-05-25] MEDS ORDERED: IBUP-1780 (15:20)
[2019-05-25] MEDS ORDERED: CYCL10TA9 (15:20)
[2019-05-25] MEDS ORDERED: METH750T3 (15:20)
[2019-05-25] MEDS ORDERED: CITA20TA9 (15:20)
[2019-05-25] MEDS ORDERED: KETOROLAC 60 MG/2 ML VIAL IM STA (15:39)
[2019-05-25] MEDS ORDERED: ORPHENADRINE 60 MG/2 ML (NORFLEX) AMP IM ONE (15:45)
--- NOTE | 2019-05-25 15:47 | ED Back Pain ---
General Chief Complaint: Back Problems Stated Complaint: BACK PAIN Nursing Triage Note: ARRIVED VIA AMB TO TRIAGE WITH COMPLAINTS OF RIGHT SIDED LOWER BACK PAIN THAT RADIATES INTO LEG. STATES HE WAS AT [facility] THREE DAYS AGO AND RECIEVED THREE DIFFERENT SHOTS. TOOK A MUSCLE RELAXER THIS AM. Nursing Sepsis Screen: No Definite Risk History of Present Illness Date Seen by Provider: May 25, 2019 Time Seen by Provider: 15:30 Initial Comments 28-year-old male presents for acute chronic back pain. He is most concerned about the pain radiated to his right leg. He has been to this emergency department 2 times prior for similar symptoms and [place] 1 time. He is on Robaxin, Tylenol and Motrin, but he hadn't taken any for 6 hours. He was walking at [facility] and his pain became increasingly worse. He denies bowel or bladder incontinence or retention. He has an appointment with his spine surgeon on June 11. Location: Lumbar Spine Timing/Duration: Getting Worse Severity: Moderate Pain/Injury Location: Back Radiation: Lower Legs (right), Upper Legs ( right) Associated Symptoms: muscle spasms, tingling in legs/feet, lower back pain; No loss of bladder control, No loss of bowel control Allergies and Home Medications Allergies Coded Allergies: zinc (Verified Allergy, Unknown, 10/10/18) Home Medications Methocarbamol 750 Mg Tablet, 750 MG PO Q4H PRN for PAIN-MODERATE (5-7) Prescribed by: DEYSI GARCIA on 05/14/191815 Prednisone 20 Mg Tab, 40 MG PO DAILY Take 3 tabs(60mg)daily, decrease by 1/2 tab(10mg)daily. Prescribed by: DEYSI GARCIA on 05/14/191815 Tramadol HCl 50 Mg Tablet, 50 MG PO Q6H PRN for PAIN Prescribed by: ASAEL CEJA on 05/25/19 1549 Patient Home Medication List Home Medication List Reviewed: Yes Review of Systems Constitutional: no symptoms reported, see HPI Musculoskeletal: see HPI, back pain Past Mdsotax-Mgmrwg-Yqshzf Hx Past Med/Social Hx: Reviewed Nursing Past Med/Soc Hx Patient Social History Alcohol Use: Denies Use Recreational Drug Use: No (DENIES AT THIS VISIT. ) Drug of Choice: occ MJ Smoking Status: Never a Smoker 2nd Hand Smoke Exposure: No Recent Foreign Travel: No Contact w/Someone Who Travel: No Recent Infectious Disease Expo: No Recent Hopitalizations: No Immunizations Up To Date Tetanus Booster (TDap): Unknown Seasonal Allergies Seasonal Allergies: No Past Medical History Surgeries: Yes (dental, cyst removal, back L5-S1) Respiratory: No Cardiac: Yes Hypertension Neurological: No Genitourinary: No Gastrointestinal: No Musculoskeletal: Yes (SCIATICA) Degenerate Disk Disease, Chronic Back Pain Endocrine: Yes (low blood glucose) HEENT: No Cancer: No Psychosocial: Yes Sleep Difficulties Integumentary: No Blood Disorders: No Physical Exam Vital Signs Vital Signs - First Documented 05/25/19 15:14 Temp 37.0 Pulse 107 Resp 16 B/P (MAP) 187/104 (131) Pulse Ox 98 O2 Delivery Room Air Capillary Refill : Less Than 3 Seconds Height, Weight, BMI Height: 6'1.00" Weight: 345lbs. oz. 156.509742bw; 40.00 BMI Method:Stated General Appearance: No Apparent Distress, WD/WN, Obese HEENT: PERRL/EOMI, TMs Normal, Normal ENT Inspection, Pharynx Normal Neck: Full Range of Motion, Normal Inspection, Non Tender, Supple Cardiovascular: Regular Rate, Rhythm, No Edema, No Murmur, Normal Peripheral Pulses (pedal pulses 2+ and symmetric, capillary refill less than 2 seconds bilateral lower extremity) Respiratory: Chest Non Tender, Lungs Clear, Normal Breath Sounds Gastrointestinal: Normal Bowel Sounds, Non Tender, Soft Back: Normal Inspection, Decreased Range of Motion (secondary to pain), Muscle Spasm, Other (Power V/V L4-S1, able to ambutlate with antalgic but steady gait, favors right leg. Able to rise onto toes and heals. ) Extremity: Normal Capillary Refill, Normal Inspection, Normal Range of Motion, No Calf Tenderness Neurologic/Psychiatric: Alert, Oriented x3, No Motor/Sensory Deficits, Normal Mood/Affect Skin: Normal Color, Warm/Dry Progress/Results/Core Measures Results/Orders My Orders Orders - ASAEL CEJA Ketorolac Injection (Toradol Injection) (05/25/19 15:39) Tramadol Tablet (Ultram Tablet) (05/25/19 15:39) Orphenadrine Injection (Norflex Injectio (05/25/19 15:45) Medications Given in ED Current Medications Medications Dose Ordered Sig/Paulette Route Start Time Stop Time Status Last Admin Dose Admin Orphenadrine Citrate 60 mg ONCE ONCE IM 05/25/19 15:45 05/25/19 15:46 DC 05/25/19 15:43 60 MG Vital Signs/I&O 05/25/19 05/25/19 15:14 16:11 Temp 37.0 37.0 Pulse 107 107 Resp 16 16 B/P (MAP) 187/104 (131) 187/104 (131) Pulse Ox 98 98 O2 Delivery Room Air Blood Pressure Mean: 131 Progress Progress Note : Time: 15:30 Progress Note Patient seen and evaluated, discussed that his neurologic findings intact extremity. CT study done on 05/14/2019 showed L2-3 central bulging disk with degenerative facet disease. Will give Toradol 60 mg IM, tramadol 50 mg by mouth and Norflex 60 mg IM. Rest of the patient the importance of following up with his compliance surgeon and using a walker at all times for ambulating. He has been using some heat on his back but not regularly. He has been continuing to work light duty. 1610 patient reports reports some improvement in his symptoms. Discharge instructions and return precautions reviewed with him. Departure Impression Primary Impression: Lumbar radiculopathy Additional Impressions: Chronic back pain Qualified Codes: M54.41 - Lumbago with sciatica, right side; G89.29 - Other chronic pain Degenerative disc disease, lumbar Disposition: 01 HOME, SELF-CARE Condition: Improved Departure-Patient Inst. Decision time for Depature: 16:00 Referrals: [facility] (PCP/Family) Primary Care Physician Patient Instructions: Chronic Pain (DC), Low Back Pain (DC) Add. Discharge Instructions: Continue to use her home medications as prescribed, alternate between Tylenol 650 mg and ibuprofen 800 mg every 4 hours. Use the heating pad to your low back for 20 minutes every 2 hours while awake. Call your spine surgeon about earlier follow-up appointment. See your primary care provider for pain management until your able to see the spine surgeon. Usually walker at all times for ambulation. Return to emergency department for new, urgent health care needs. All discharge instructions reviewed with patient and/or family. Voiced understanding. Scripts Tramadol HCl (Tramadol HCl) 50 Mg Tablet 50 MG PO Q6H PRN for PAIN, #20 TAB 0 Refills Prov: ASAEL CEJA ELIDIA 05/25/19 Work/School Note: Work Release Form Date Seen in the Emergency Department: May 25, 2019 Return to Work: May 26, 2019 Other Restrictions Listed Below: Must use walker at all times. ASAEL CEJA May 25, 2019 15:47
[2019-05-25] MEDS ORDERED: TRM50T PO (15:49)
[2019-05-25 16:11] VITALS: BP 187/104
== END 2019-05-25 16:11 | disposition home or self-care (01) ==
LOC: EDUNIT# 15:09 → ER 15:10
DX: M54.16 Radiculopathy, lumbar region (principal); G89.29 Other chronic pain; M51.36 Other intervertebral disc degeneration, lumbar region; I10 Essential (primary) hypertension; Z88.8 Allergy status to other drugs, medicaments and biological substances; Z91.14 Patient's other noncompliance with medication regimen
CPT/HCPCS: 96372; 99284

== ENCOUNTER 2020-12-29 07:43 | Emergency (ER) | payer BC, MEDICAID ==
[~2020-12-29] VITALS: Ht 185 cm; Wt 89.0 kg
[~2020-12-29 07:43] MED LIST changes: +CITA20TA9; +CYCL10TA9; +IBUP-1780; +METH-732; +TRAZODONE; +TRM50T PO
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
--- OUTSIDE RECORDS SUMMARY | 2020-12-29 07:50 | XMS REPORT | Clinical Summary ---
Author Author [facility] Organization [facility] Address Unknown Phone Unavailable Care Team Providers Care Wax Machine Operator Name Role Phone Neno Boone MD PCP Allergies Comments Active Allergy Reactions Severity Noted Date Zinc Hives Medium 05/12/2009 Medications End Date Status Medication Sig Dispensed Refills Start Date Active tiZANidine (ZANAFLEX) 2 Take 1 tablet 20 tablet 0 MG tablet (2 mg total) 0 by mouth every 6 (six) hours as needed. Active Problems Not on file Social History Date Tobacco Use Types Packs/Day Years Used Never Smoker Smokeless Tobacco: Never Used Comments Alcohol Use Standard Drinks/Week Not Currently 0 (1 standard drink = 0.6 o z pure alcohol) Sex Assigned at Date Recorded Not on file Last Filed Vital Signs Reading Time Taken Comments Vital Sign 138/86 01/25/2020 4:52 PM CDT Blood Pressure 109 01/25/2020 4:52 PM CDT Pulse 37.1 C (98.8 F) 01/25/2020 4:52 PM CDT Temperature 16 01/25/2020 4:52 PM CDT Respiratory Rate 98% 01/25/2020 4:52 PM CDT Oxygen Saturation - - Inhaled Oxygen Concentration 145 kg (319 lb 10.7 oz) 01/25/2020 4:52 PM CDT Weight 182.9 cm (6') 01/25/2020 4:52 PM CDT Height 43.35 01/25/2020 4:52 PM CDT Body Mass Index Plan of Treatment Not on file Results Not on filefrom Last 3 Months Insurance Type Payer Benefit Subscriber ID Effective Phone Address Plan / Dates Group MEDICAID MANAGED CARE AETNA [id number] 0- ([place] BETTER [facility] Advance Directives For more information, please contact: [phone] Patient Spinner Tender Explanation Type Date Recorded Health Care Directive
--- OUTSIDE RECORDS SUMMARY | 2020-12-29 07:50 | XMS REPORT | Clinical Summary ---
Author Author [facility] Organization [facility] Address Unknown Phone Unavailable Care Team Providers Care Industrial Staff Nurse Name Role Phone Artie Gilliland MD PCP Source Comments [facility] (Labor and Delivery) documents do not appear [facility] the [facility] Allergies No Known Active Allergies Medications * Please verify current medications with patient. End Date Status Medication Sig Dispensed Refills Start Date Active HYDROcodone-acetaminophen Take 1 tablet 15 tablet 0 , 5-325 mg/tab, (FOR by mouth 2 NORCO) 5-325 mg per every six tablet hours, as needed for Moderate Pain. Active indomethacin (FOR Take 1 60 capsule 0 04/15/20 1 INDOCIN) 50 mg capsule capsule by 2 mouth two times a day. Active HYDROcodone-acetaminophen Take 1 tablet 10 tablet 0 , 5-500 mg/tab, (FOR by mouth 2 VICODIN) 5-500 mg tablet every four hours, as needed for Pain. Active oxyCODONE-acetaminophen, Take 1-2 20 tablet 0 1 5-325 mg/tab, (FOR tablets by 2 PERCOCET) 5-325 mg tablet mouth every six hours, as needed for Severe Pain. Active Problems Problem Noted Date Gout, unspecified 04/15/2012 Social History Date Tobacco Use Types Packs/Day Years Used Never Smoker Smokeless Tobacco: Never Used Comments Alcohol Use Standard Drinks/Week occasional Yes 0 (1 standard drink = 0.6 o z pure alcohol) Sex Assigned at Date Recorded Not on file Last Filed Vital Signs Reading Time Taken Comments Vital Sign 152/91 04/17/2012 8:34 PM STONEMASON SUPERVISOR Blood Pressure 98 04/17/2012 8:34 PM STONEMASON SUPERVISOR Pulse 37 C (98.6 F) 04/17/2012 8:34 PM STONEMASON SUPERVISOR Temperature 20 04/17/2012 8:34 PM STONEMASON SUPERVISOR Respiratory Rate 97% 04/17/2012 8:34 PM STONEMASON SUPERVISOR Oxygen Saturation - - Inhaled Oxygen Concentration 102.1 kg (225 lb) 04/17/2012 7:23 PM STONEMASON SUPERVISOR Weight 185.4 cm (6' 1") 04/17/2012 7:23 PM STONEMASON SUPERVISOR Height 29.69 04/17/2012 7:23 PM MST Body Mass Index Plan of Treatment Health Maintenance Due Date Last Done Comments COVID-19 Vaccine (1) 2001 Influenza Vaccine (#1) 2021 HPV Vaccine Aged Out No longer eligible based on patient's age to complete this topic Pneumococcal Vaccine: Aged Out No longer eligib le based on patient's age to Pediatrics (0 to 5 Years) complete this topic and At-Risk Patients (6 to 64 Years) Results Not on filefrom Last 3 Months Insurance Type Payer Benefit Subscriber ID Effective Phone Address Plan / Dates Group Indemnity JacobZABEL JamesZABEL [id number] Effective [place] for all [id number] Advance Directives Patient Retoucher Explanation Type Date Recorded Living Will CPR Directives Durable Medical POA Advanced Directives 04/15/2012 11:29 AM
--- NOTE | 2020-12-29 08:27 | ED Abdominal Pain ---
General Chief Complaint: Abdominal/GI Problems Stated Complaint: RLQ PAIN Nursing Triage Note: PT COMPLAINT OF RLQ ABDOMINAL PAIN SINCE AFTER DINNER LAST NIGHT AT 1900HRS. PT REPORTS DUMPING SYNDROME AFTER THE MEAL. PT STATES THAT PAIN IS CURRENTLY 4/10 PAIN RATING BUT HAS SPIKES UP TO 7/10. PT DOES NOT RADIATE OUTSIDE OF RLQ. PT HAS HISTORY OF GASTRIC BYPASS SURGERY LAST 2019. Source of Information: Patient Exam Limitations: No Limitations History of Present Illness Date Seen by Provider: Dec 29, 2020 Time Seen by Provider: 08:10 Initial Comments Patient is a 30-year-old male who presents to the emergency department today with a chief complaint of right-sided abdominal pain onset shortly after eating dinner last night. Patient states that he ate around 7:00 and shortly after having about 4 5 bites of his dinner had "dumping syndrome" where he started to vomit profusely. Patient states he vomited quite a bit. He had persistent and worsening right lower quadrant abdominal pain. He states it is "sharp" at its worst a "7". Currently a "4". Patient denies any diarrhea. He denies any fevers or chills. He has not had anything other than a sip of water this morning. Last year he had gastric bypass and subsequently lost about 200 pounds. He has had a cholecystectomy. He denies any black or bloody stools, states he had a round of bloody stools a few months ago and had subsequent colonoscopy that was unremarkable. He denies any urinary complaints such as burning urgency or frequency. He states the pain radiates into his right groin. He has never had a kidney stone. He states walking briskly and bumps in the road on the car ride over made his pain worse. He states bending makes his pain worse. Nothing has made it any better. Patient is Covid vaccinated fully with Moderna. All other review of systems reviewed and negative except as stated. Timing/Duration: 12 Hours Severity/Quality: Moderate Location: RLQ Radiation: Groin Modifying Factors: Worsens With Movement Associated Symptoms: Nausea/Vomiting Allergies and Home Medications Allergies Coded Allergies: zinc (Verified Allergy, Unknown, 10/10/18) Home Medications Methocarbamol 750 Mg Tablet, 750 MG PO Q4H PRN for PAIN-MODERATE (5-7) Prescribed by: DEYSI GARCIA on 05/14/191815 Prednisone 20 Mg Tab, 40 MG PO DAILY Take 3 tabs(60mg)daily, decrease by 1/2 tab(10mg)daily. Prescribed by: DEYSI GARCIA on 05/14/191815 Tramadol HCl 50 Mg Tablet, 50 MG PO Q6H PRN for PAIN Prescribed by: ASAEL CEJA on 05/25/19 1549 Patient Home Medication List Home Medication List Reviewed: Yes Review of Systems Review of Systems Constitutional: see HPI EENTM: No Symptoms Reported Respiratory: No Symptoms Reported Cardiovascular: No Symptoms Reported Gastrointestinal: Abdominal Pain, Nausea, Vomiting Genitourinary: No Symptoms Reported Musculoskeletal: no symptoms reported Skin: no symptoms reported All Other Systems Reviewed Negative Unless Noted: Yes Past Aygemyz-Niukgm-Pfdmtv Hx Patient Social History Tobacco Use?: No Smoking Status: Never a Smoker Substance use?: No Alcohol Use?: No Pt feels they are or have been: No Immunizations Up To Date Tetanus Booster (TDap): Unknown First/Initial COVID19 Vaccinat: 09/11/20 Second COVID19 Vaccination Souleymane: 10/08/20 COVID19 Vaccine Physician Assistant Surgery: [employer] Seasonal Allergies Seasonal Allergies: No Past Medical History Surgeries: Yes (dental, cyst removal, back L5-S1) Respiratory: No Cardiac: Yes Hypertension Neurological: No Genitourinary: No Gastrointestinal: No Musculoskeletal: Yes (SCIATICA) Degenerate Disk Disease, Chronic Back Pain Endocrine: Yes (low blood glucose) HEENT: No Cancer: No Psychosocial: Yes Sleep Difficulties Integumentary: No Blood Disorders: No Physical Exam Vital Signs Vital Signs - First Documented 12/29/20 07:51 Temp 36.7 Pulse 86 Resp 14 B/P (MAP) 123/83 (96) Pulse Ox 99 O2 Delivery Room Air Capillary Refill : Less Than 3 Seconds Height/Weight/BMI Height: 6'1.00" Weight: 345lbs. oz. 156.511492bv; 26.00 BMI Method:Stated General Appearance: WD/WN, no apparent distress HEENT: PERRL/EOMI Neck: normal inspection Respiratory: lungs clear, normal breath sounds, no respiratory distress, no accessory muscle use Cardiovascular: regular rate, rhythm Gastrointestinal: soft, abnormal bowel sounds (hypoactive), guarding (RLQ), tenderness (RLQ) Extremities: normal inspection Neurologic/Psychiatric: alert, normal mood/affect, oriented x 3 Skin: normal color, warm/dry Progress/Results/Core Measures Results/Orders Lab Results Laboratory Tests Test 12/29/20 08:18 12/29/20 08:38 Range/Units White Blood Count 6.6 4.3-11.0 10^3/uL Red Blood Count 4.69 4.30-5.52 10^6/uL Hemoglobin 15.4 13.3-17.7 g/dL Hematocrit 43 40-54 % Mean Corpuscular Volume 92 80-99 fL Mean Corpuscular Hemoglobin 33 25-34 pg Mean Corpuscular Hemoglobin Concent 36 32-36 g/dL Red Cell Distribution Width 12.2 10.0-14.5 % Platelet Count 208 130-400 10^3/uL Mean Platelet Volume 10.8 9.0-12.2 fL Immature Granulocyte % (Auto) 0 % Neutrophils (%) (Auto) 53 42-75 % Lymphocytes (%) (Auto) 37 12-44 % Monocytes (%) (Auto) 6 0-12 % Eosinophils (%) (Auto) 3 0-10 % Basophils (%) (Auto) 1 0-10 % Neutrophils # (Auto) 3.5 1.8-7.8 10^3/uL Lymphocytes # (Auto) 2.5 1.0-4.0 10^3/uL Monocytes # (Auto) 0.4 0.0-1.0 10^3/uL Eosinophils # (Auto) 0.2 0.0-0.3 10^3/uL Basophils # (Auto) 0.1 0.0-0.1 10^3/uL Immature Granulocyte # (Auto) 0.0 0.0-0.1 10^3/uL Sodium Level 141 135-145 MMOL/L Potassium Level 4.3 3.6-5.0 MMOL/L Chloride Level 107 98-107 MMOL/L Carbon Dioxide Level 27 21-32 MMOL/L Anion Gap 7 5-14 MMOL/L Blood Urea Nitrogen 10 7-18 MG/DL Creatinine 0.79 0.60-1.30 MG/DL Estimat Glomerular Filtration Rate 114 BUN/Creatinine Ratio 13 Glucose Level 89 70-105 MG/DL Calcium Level 9.8 8.5-10.1 MG/DL Urine Color YELLOW Urine Clarity CLEAR Urine pH 8.0 5-9 Urine Specific [place] 1.015 L 1.016-1.022 Urine Protein NEGATIVE NEGATIVE Urine Glucose (UA) NEGATIVE NEGATIVE Urine Ketones NEGATIVE NEGATIVE Urine Nitrite NEGATIVE NEGATIVE Urine Bilirubin NEGATIVE NEGATIVE Urine Urobilinogen 2.0 < = 1.0 MG/DL Urine Leukocyte Esterase NEGATIVE NEGATIVE Urine RBC (Auto) NEGATIVE NEGATIVE Urine RBC NONE /HPF Urine WBC NONE /HPF Urine Squamous Epithelial Cells NONE /HPF Urine Crystals NONE /LPF Urine Bacteria NEGATIVE /HPF Urine Casts NONE /LPF Urine Mucus NEGATIVE /LPF Urine Culture Indicated NO My Orders Orders - CHRISTOPHER HERNANDEZ MD Ed Iv/Invasive Line Start (12/29/20 08:19) Cbc With Automated Diff (12/29/20 08:19) Basic Metabolic Panel (12/29/20 08:19) Ua Culture If Indicated (12/29/20 08:19) Ns Iv 1000 Ml (Sodium Chloride 0.9%) (12/29/20 08:30) Fentanyl Inj (Sublimaze Injection) (12/29/20 08:30) Ondansetron Injection (Zofran Injectio (12/29/20 08:30) Ct Abdomen/Pelvis Wo (12/29/20 09:00) Medications Given in ED Current Medications Medications Dose Ordered Sig/Paulette Route Start Time Stop Time Status Last Admin Dose Admin Fentanyl Citrate 25 mcg ONCE ONCE IVP 12/29/20 08:30 12/29/20 08:31 DC 12/29/20 08:34 25 MCG Ondansetron HCl 4 mg ONCE ONCE IVP 12/29/20 08:30 12/29/20 08:31 DC 12/29/20 08:34 4 MG Vital Signs/I&O 12/29/20 07:51 Temp 36.7 Pulse 86 Resp 14 B/P (MAP) 123/83 (96) Pulse Ox 99 O2 Delivery Room Air Blood Pressure Mean: 96 Progress Progress Note : Time: 09:39 Progress Note Patient's laboratory studies reviewed, everything is within normal limits. No elevated white blood cell count no anemia, no abnormal chemistries, no hematuria. CT abdomen and pelvis noncontrast revealed no acute abdominal pathology. The patient's appendix was visualized by the radiologist and is normal. I reevaluated the patient and he states he feels a little bit better. He still has a very minimal amount of right lower quadrant pain. I advised the patient watchful waiting throughout the course of today and tomorrow morning. Clear liquid diet for the next several hours and slowly advance his diet as tolerated. Patient is comfortable with this plan of care. All questions are sought and answered. Patient is stable for discharge. Diagnostic Imaging Diagonstic Imaging: CT Plain Films/CT/US/NM/MRI: abdomen Comments [facility] [place], [place] NAME: JANELL AGUILAR [facility] REC#: [id number] PT STATUS: REG ER : 1990 PHYSICIAN: CHRISTOPHER HERNANDEZ MD ADMIT DATE: 12/29/20/ER Draft Date of Exam:12/29/20 CT ABDOMEN/PELVIS WO PROCEDURE: CT abdomen and pelvis without contrast. TECHNIQUE: Multiple contiguous axial images were obtained through the abdomen and pelvis without the use of intravenous contrast. Auto Exposure Controls were utilized during the CT exam to meet ALARA standards for radiation dose reduction. INDICATION: Right lower quadrant pain. FINDINGS: The lung bases are clear. There is no effusion. The gallbladder is absent. The liver and bile ducts are normal. There are changes of prior gastric surgery. The spleen, pancreas, and adrenals are normal. The kidneys, ureters, and bladder are normal. The appendix is normal. No acute bowel abnormality is seen. There is no ascites. There is no adenopathy. There are changes of prior laminectomy from L3 through L5. There is no acute bony abnormality. IMPRESSION: No acute abnormality is seen. Dictated on workstation # [id number] Dict: 12/29/2025 Trans: 12/29/20 0928 [id number] Interpreted by: HERACLIO CLAIRE MD Electronically signed by: Departure Impression Primary Impression: Abdominal pain Qualified Codes: R10.31 - Right lower quadrant pain Disposition: 01 HOME, SELF-CARE Condition: Stable Departure-Patient Inst. Decision time for Depature: 09:34 Referrals: [facility] (PCP/Family) Primary Care Physician Patient Instructions: Abdominal Pain, Adult ED Add. Discharge Instructions: Follow a clear liquid diet today then slowly advance your diet as tolerated. Take a little Tylenol or ibuprofen every 6 4 to 6 hours today for discomfort. If you have worsening pain especially with fever, return of vomiting or other worsening symptoms please come back to the emergency department for reevaluation. Work/School Note: Work Release Form Date Seen in the Emergency Department: Dec 29, 2020 Return to Work: Dec 30, 2020 CHRISTOPHER HERNANDEZ MD Dec 29, 2020 08:26
[2020-12-29] MEDS ORDERED: ONDANSETRON 4 MG/2 ML (SDV) Z0FRAN IVP ONE (08:30)
[2020-12-29] MEDS ORDERED: NS IV 1000 ML 1,000 ML IV SCH (08:30)
[2020-12-29] MEDS ORDERED: fentaNYL INJ 100 MCG/2 ML AMP IVP ONE (08:30)
[2020-12-29 08:32] LABS: BASOPHILS # (AUTO) 0.1 10^3/uL (0.0-0.1); BASOPHILS % (AUTO) 1 % (0-10); EOSINOPHILS # (AUTO) 0.2 10^3/uL (0.0-0.3); EOSINOPHILS % (AUTO) 3 % (0-10); HEMATOCRIT 43 % (40-54); HEMOGLOBIN 15.4 g/dL (13.3-17.7); LYMPHOCYTES # (AUTO) 2.5 10^3/uL (1.0-4.0); LYMPHOCYTES % (AUTO) 37 % (12-44); MEAN CORPUSCULAR HEMOGLOBIN 33 pg (25-34); MEAN CORPUSCULAR HGB CONC 36 g/dL (32-36); MEAN CORPUSCULAR VOLUME 92 fL (80-99); MEAN PLATELET VOLUME 10.8 fL (9.0-12.2); MONOCYTES # (AUTO) 0.4 10^3/uL (0.0-1.0); MONOCYTES % (AUTO) 6 % (0-12); NEUTROPHILS # (AUTO) 3.5 10^3/uL (1.8-7.8); NEUTROPHILS % (AUTO) 53 % (42-75); PLATELET COUNT 208 10^3/uL (130-400); WHITE BLOOD COUNT 6.6 10^3/uL (4.3-11.0)
[2020-12-29 08:45] LABS: BILIRUBIN,URINE NEGATIVE (NEGATIVE); CLARITY,URINE CLEAR; COLOR,URINE YELLOW; GLUCOSE, URINE (UA) NEGATIVE (NEGATIVE); KETONES,URINE NEGATIVE (NEGATIVE); LEUKOCYTE ESTERASE ,URINE NEGATIVE (NEGATIVE); NITRITE,URINE NEGATIVE (NEGATIVE); PROTEIN,URINE NEGATIVE (NEGATIVE)
[2020-12-29 08:45] LABS: POTASSIUM 4.3 MMOL/L (3.6-5.0)
[2020-12-29 08:46] LABS: CALCIUM 9.8 MG/DL (8.5-10.1)
[2020-12-29 08:50] LABS: CREATININE SERUM 0.79 MG/DL (0.60-1.30)
[2020-12-29 08:51] LABS: BACTERIA,URINE NEGATIVE /HPF
--- NOTE | 2020-12-29 09:29 | Diagnostic Imaging Report ---
PROCEDURE: CT abdomen and pelvis without contrast. TECHNIQUE: Multiple contiguous axial images were obtained through the abdomen and pelvis without the use of intravenous contrast. Auto Exposure Controls were utilized during the CT exam to meet ALARA standards for radiation dose reduction. INDICATION: Right lower quadrant pain. FINDINGS: The lung bases are clear. There is no effusion. The gallbladder is absent. The liver and bile ducts are normal. There are changes of prior gastric surgery. The spleen, pancreas, and adrenals are normal. The kidneys, ureters, and bladder are normal. The appendix is normal. No acute bowel abnormality is seen. There is no ascites. There is no adenopathy. There are changes of prior laminectomy from L3 through L5. There is no acute bony abnormality. IMPRESSION: No acute abnormality is seen. Dictated by: Dictated on workstation # [id number]
[2020-12-29 15:34] VITALS: BP 118/72
== END 2020-12-29 09:42 | disposition home or self-care (01) ==
LOC: EDUNIT# 07:43 → ER 07:44
DX: R10.31 Right lower quadrant pain (principal); I10 Essential (primary) hypertension; Z79.52 Long term (current) use of systemic steroids
CPT/HCPCS: 36415; 74176; 80048; 81000; 85025

== ENCOUNTER 2020-12-31 06:51 | Day surgery (SDC) | payer MEDICAID ==
[~2020-12-31] VITALS: Ht 185 cm; Wt 90.0 kg
[2020-12-31] MEDS ORDERED: FAMOTIDINE 20MG/2ML IV (PEPCID) IVP ONE (07:30)
[2020-12-31] MEDS ORDERED: ONDANSETRON 4 MG/2 ML (SDV) Z0FRAN IVP ONE ×2 (07:30)
[2020-12-31 07:34] LABS: BASOPHILS # (AUTO) 0.1 10^3/uL (0.0-0.1); BASOPHILS % (AUTO) 1 % (0-10); EOSINOPHILS # (AUTO) 0.2 10^3/uL (0.0-0.3); EOSINOPHILS % (AUTO) 2 % (0-10); HEMATOCRIT 41 % (40-54); HEMOGLOBIN 14.7 g/dL (13.3-17.7); LYMPHOCYTES # (AUTO) 2.4 10^3/uL (1.0-4.0); LYMPHOCYTES % (AUTO) 30 % (12-44); MEAN CORPUSCULAR HEMOGLOBIN 33 pg (25-34); MEAN CORPUSCULAR HGB CONC 36 g/dL (32-36); MEAN CORPUSCULAR VOLUME 91 fL (80-99); MEAN PLATELET VOLUME 10.9 fL (9.0-12.2); MONOCYTES # (AUTO) 0.5 10^3/uL (0.0-1.0); MONOCYTES % (AUTO) 6 % (0-12); NEUTROPHILS % (AUTO) 61 % (42-75); PLATELET COUNT 215 10^3/uL (130-400); WHITE BLOOD COUNT 8.1 10^3/uL (4.3-11.0)
--- NOTE | 2020-12-31 07:39 | ED Abdominal Pain ---
General Chief Complaint: Abdominal/GI Problems Stated Complaint: ABD PAIN Nursing Triage Note: PT LAST SEEN SUNDAY FOR SAME COMPLAINT. PT HAD GASTRIC BYPASS IN 2019 AND HAS LOST OVER 200LBS. FOR THE LAST WEEK PT HAS NOT BEEN ABLE TO KEEP ANY FOOD INTAKE, HE REPORTS "DUMPING SYNDROME." PT REPORTS 9/10 PAIN WITH A STABBING QAULITY BUT DENIES RADIATION OUTSIDE OF MIDLINE UPPER ABDOMEN. Source of Information: Patient, Old Records Exam Limitations: No Limitations History of Present Illness Date Seen by Provider: Dec 31, 2020 Time Seen by Provider: 07:14 Initial Comments This 30-year-old gentleman presents to the emergency room with about a week of abdominal pain, nausea, and vomiting. The pain initially started to the right lower quadrant but has now migrated to the epigastrium. He was seen for this pain in the ER on December 29. Work-up including CT scan was unremarkable. Specifically, there was no acute appendicitis seen. He has history of Denise-en-Y gastric bypass 1 year ago with subsequent 200 pound weight loss. He denies any fever or diarrhea. No urinary changes. He has been taking Pepcid, omeprazole, and Pepto-Bismol without relief. He states at this time any attempted to swall ow anything including water results and vomiting. He is quite tender in the epigastrium. He denies any alcohol use. He recently moved to the area and has no local primary care provider. His surgery was performed at [facility]. Allergies and Home Medications Allergies Coded Allergies: zinc (Verified Allergy, Unknown, 10/10/18) Home Medications Methocarbamol 750 Mg Tablet, 750 MG PO Q4H PRN for PAIN-MODERATE (5-7) Prescribed by: DEYSI GARCIA on 05/14/191815 Prednisone 20 Mg Tab, 40 MG PO DAILY Take 3 tabs(60mg)daily, decrease by 1/2 tab(10mg)daily. Prescribed by: DEYSI GARCIA on 05/14/191815 Tramadol HCl 50 Mg Tablet, 50 MG PO Q6H PRN for PAIN Prescribed by: ASAEL CEJA on 05/25/19 1549 Patient Home Medication List Home Medication List Reviewed: Yes Review of Systems Review of Systems Constitutional: no symptoms reported EENTM: No Symptoms Reported Respiratory: No Symptoms Reported Cardiovascular: No Symptoms Reported Gastrointestinal: See HPI Genitourinary: No Symptoms Reported Musculoskeletal: no symptoms reported Skin: no symptoms reported Psychiatric/Neurological: No Symptoms Reported Endocrine: No Symptoms Reported Hematologic/Lymphatic: No Symptoms Reported Past Vmlulxf-Jxedmd-Njmnrj Hx Patient Social History Tobacco Use?: No Substance use?: No Alcohol Use?: No Pt feels they are or have been: No Immunizations Up To Date Tetanus Booster (TDap): Unknown Second COVID19 Vaccination Souleymane: NA 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: [employer] Seasonal Allergies Seasonal Allergies: No Past Medical History Surgery/Hospitalization HX: GASTRIC BYPASS AND GALLBLADDER REMOVEAL IN 2019, SPINAL SURGERY IN 2017 Surgeries: Yes (dental, cyst removal, back L5-S1) Abdominal (Denise-en-Y gastric bypass 2019), Gallbladder, Orthopedic Respiratory: No Cardiac: Yes Hypertension (Resolved after weight loss) Neurological: No Genitourinary: No Gastrointestinal: Yes (History Denise-en-Y gastric bypass 2019) Gastroesophageal Reflux Musculoskeletal: Yes (SCIATICA) Degenerate Disk Disease, Chronic Back Pain (With spinal stenosis) Endocrine: Yes (low blood glucose) HEENT: No Cancer: No Psychosocial: Yes Sleep Difficulties Integumentary: No Blood Disorders: No Physical Exam Vital Signs Vital Signs - First Documented 12/31/20 07:07 Temp 36.5 Pulse 70 Resp 12 B/P (MAP) 122/82 (95) Pulse Ox 100 O2 Delivery Room Air Capillary Refill : Less Than 3 Seconds Height/Weight/BMI Height: 6'1.00" Weight: 345lbs. oz. 156.797042ea; 26.00 BMI Method:Stated General Appearance: WD/WN, no apparent distress HEENT: PERRL/EOMI, normal ENT inspection Neck: normal inspection Respiratory: lungs clear, normal breath sounds, no respiratory distress Cardiovascular: regular rate, rhythm, no edema, no murmur Gastrointestinal: normal bowel sounds, soft, tenderness (Generalized but concentrated in the epigastrium. 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, alert, normal mood/affect, oriented x 3 Skin: normal color, warm/dry Progress/Results/Core Measures Results/Orders Lab Results Laboratory Tests Test 12/31/20 07:18 Range/Units My Orders Orders - BRADLY JACOME MD Ondansetron Injection (Zofran Injectio (12/31/20 07:30) Ondansetron Injection (Zofran Injectio (12/31/20 07:30) Cbc With Automated Diff (12/31/20 07:26) Comprehensive Metabolic Panel (12/31/20 07:26) Hs C Reactive Protein (12/31/20 07:26) Lipase (12/31/20 07:26) Famotidine Injection (Pepcid Injection) (12/31/20 07:30) Vital Signs/I&O 12/31/20 07:07 Temp 36.5 Pulse 70 Resp 12 B/P (MAP) 122/82 (95) Pulse Ox 100 O2 Delivery Room Air Blood Pressure Mean: 95 Progress Progress Note : Time: 07:41 Progress Note Documentation from prior visit was reviewed. He is being treated with Zofran and Pepcid. Labs are pending. Departure Departure-Patient Inst. Referrals: [facility] (PCP/Family) Primary Care Physician BRADLY JACOME MD Dec 31, 2020 07:39
[2020-12-31 07:41] LABS: ALBUMIN 4.4 GM/DL (3.2-4.5); POTASSIUM 4.1 MMOL/L (3.6-5.0)
[2020-12-31 07:46] LABS: BILIRUBIN,TOTAL 1.2 MG/DL (0.1-1.0)
[2020-12-31 07:48] LABS: CREATININE SERUM 0.8 MG/DL (0.60-1.30)
[2020-12-31] MEDS ORDERED: fentaNYL INJ 100 MCG/2 ML AMP IVP ONE ×2 (08:00→12:45)
[2020-12-31 08:12] LABS: BILIRUBIN,URINE NEGATIVE (NEGATIVE); CLARITY,URINE CLOUDY; COLOR,URINE YELLOW; GLUCOSE, URINE (UA) NEGATIVE (NEGATIVE); KETONES,URINE NEGATIVE (NEGATIVE); LEUKOCYTE ESTERASE ,URINE NEGATIVE (NEGATIVE); NITRITE,URINE NEGATIVE (NEGATIVE); PH,URINE 7.5 (5-9); PROTEIN,URINE NEGATIVE (NEGATIVE)
[2020-12-31] MEDS ORDERED: LACTATED RINGERS 1,000 ML IV ONE ×3 (08:15→13:36)
[2020-12-31 08:20] LABS: AMORPHOUS SEDIMENT,UR LARGE AMOR PHOSPHATE /LPF; BACTERIA,URINE NEGATIVE /HPF
--- NOTE | 2020-12-31 09:40 | Consultation - Surgery ---
LETTY IRVING 12/31/20 0940: History of Present Illness History of Present Illness Patient Consulted On(jordan/time) 12/31/20 09:39 Reason for Visit: Abdomina pain History of Present Illness Prior HPI from ED - This 30-year-old gentleman presents to the emergency room with about a week of abdominal pain, nausea, and vomiting. The pain initially started to the right lower quadrant but has now migrated to the epigastrium. He was seen for this pain in the ER on December 29. Work-up including CT scan was unremarkable. Specifically, there was no acute appendicitis seen. He has history of Denise-en-Y gastric bypass 1 year ago with subsequent 200 pound weight loss. He denies any fever or diarrhea. No urinary changes. He has been taking Pepcid, omeprazole, and Pepto-Bismol without relief. He states at this time any attempted to swallow anything including water results and vomiting. He is quite tender in the epigastrium. He denies any alcohol use. He recently moved to the area and has no local primary care provider. His surgery was performed at [facility] Today I saw Mr. Glasgow a 30 yo M, who presents with epigastric pain with nausea and vomiting and diarrhea for the last 1 wk. Pt describes vomitous as mucusy without blood. Pt describes this as dumping syndrome and reports Denise-en-Y performed 2019. Pt states the pain began in his RLQ, subsided and then reappeared in the epigastric area. Pt takes a PPI and states that Pepto and tums help with the pain. Pt reports an ER visit [address] that "did not show anything", pt was given analgesia and place on liquid diet and returned home. Pt also reports hx of blood in his stool which prompted a colonoscopy with polypectomy done 6wks ago, bleeding continued for 4wks which pt describes as dark blood with only one occurrence of BRB. Pt states that bleeding stopped about 2 weeks ago. Pt does not have McBurney's pt or rebound tenderness, psosas, obturator or Rovsing's sign. Pt does report epigastric pain with left heal strike and right Llyods punch to CVA. Pt reports pain with palpation from umbilicus to epigastric and also lateral to the umbilicus. Allergies and Home Medications Allergies Coded Allergies: zinc (Verified Allergy, Unknown, 10/10/18) Home Medications Methocarbamol 750 Mg Tablet, 750 MG PO Q4H PRN for PAIN-MODERATE (5-7) Prescribed by: DEYSI GARCIA on 05/14/191815 Prednisone 20 Mg Tab, 40 MG PO DAILY Take 3 tabs(60mg)daily, decrease by 1/2 tab(10mg)daily. Prescribed by: DEYSI GARCIA on 05/14/191815 Tramadol HCl 50 Mg Tablet, 50 MG PO Q6H PRN for PAIN Prescribed by: ASAEL CEAJ on 05/25/19 1549 Past Xfktovb-Konvtg-Atoobn Hx Patient Social History Smoking Status: Former Smoker Former Smoker, Quit: Dec 05, 2009 Type Used: Cigarettes 2nd Hand Smoke Exposure: No Recent Hopitalizations: No Alcohol Use?: No Have you traveled recently?: No Immunizations Up To Date Tetanus Booster (TDap): Unknown Seasonal Allergies Seasonal Allergies: No Surgeries History of Surgeries: Yes (dental, cyst removal, back L5-S1) Surgeries: Abdominal (Denise-en-Y gastric bypass 2019), Gallbladder (2019 in ), Orthopedic (L1-S1 laminectomy for stenosis) Respiratory History of Respiratory Disorde: No Cardiovascular History of Cardiac Disorders: Yes Cardiac Disorders: Hypertension (Resolved after weight loss) Neurological History of Neurological Disord: No Genitourinary History of Genitourinary Disor: No Gastrointestinal History of Gastrointestinal Di: Yes (History Denise-en-Y gastric bypass 2019) Gastrointestinal Disorders: Gastroesophageal Reflux Musculoskeletal History of Musculoskeletal Dis: Yes (SCIATICA) Musculoskeletal Disorders: Degenerate Disk Disease, Chronic Back Pain (With spinal stenosis) Endocrine History of Endocrine Disorders: Yes (low blood glucose) HEENT History of HEENT Disorders: No Cancer History of Cancer: No Psychosocial History of Psychiatric Problem: Yes Behavioral Health Disorders: Sleep Difficulties Integumentary History of Skin or Integumenta: No Blood Transfusions History of Blood Disorders: No Family Medical History Significant Family History: Cancer, Other Conditions/Hx Other Father has crohns dz. Uncle with colon cancer at 48 Review of Systems-General Constitutional: No chills, No diaphoresis; dizziness, fever, malaise, weakness, weight loss (Planed (200lbs lost in one year)) EENTM: No ear discharge, No hearing loss, No ear pain, No blurred vision, No double vision, No eye pain, No vision loss, No mouth pain, No mouth swelling, No epistaxis, No nose pain, No throat pain, No throat swelling Respiratory: No cough, No dyspnea on exertion, No hemoptysis, No orthopnea, No phlegm, No short of breath, No stridor, No wheezing Cardiovascular: No chest pain, No edema, No Hx of Intervention, No palpitations, No syncope, No vascular heart diseas Gastrointestinal: LUQ, LLQ, abdominal pain (RLQ 1wk ago, pain has now migrated to epigastric), diarrhea (2wks - no blood); No hematemesis; vomiting Genitourinary: No decreased output, No discharge, No dysuria, No frequency, No hematuria, No hesitancy, No incontinence, No nocturia, No pain Musculoskeletal: back pain; No gout, No joint pain, No joint swelling, No muscle pain, No muscle stiffness, No muscle cramps, No muscle twitching, No muscle weakness, No neck pain Skin: No change in color, No change in hair/nails, No dryness, No hx of skin cancer, No lesions, No lumps, No pruritus, No rash; other (loose skin due to significant weight loss) Psychiatric/Neurological: Denies Anxiety, Denies Depressed, Denies Emotional Problems, Denies Headache, Denies Numbness, Denies Paresthesia, Denies Pre- Existing Deficit, Denies Seizure, Denies Tingling, Denies Tremors; Weakness Other Back pain around T11 Physical Exam-General Problems Physical Exam Vital Signs Vital Signs - First Documented 12/31/20 07:07 Temp 36.5 Pulse 70 Resp 12 B/P (MAP) 122/82 (95) Pulse Ox 100 O2 Delivery Room Air Capillary Refill : Less Than 3 Seconds General Appearance: WD/WN, moderate distress Eyes: Bilateral Eye PERRL, Bilateral Eye EOMI HEENT: No scleral icterus (R), No scleral icterus (L), No pale conjunctivae (R), No pale conjunctivae (L); pharyngeal erythema (pt has been vomiting); No tonsillar exudate Neck: full range of motion, supple, normal inspection Respiratory: lungs clear, normal breath sounds, no respiratory distress, no accessory muscle use Cardiovascular: regular rate, rhythm, no edema, no gallop, no murmur Peripheral Pulses: 1+ Radial Pulses (R), 1+ Radial Pulses (L) Gastrointestinal: normal bowel sounds, soft, no organomegaly, no pulsatile mass, tenderness (periumbilical to epigastric and also left laterally to umbilicus with palpation) Rectal: deferred Back: CVA tenderness (R), vertebral tenderness (near T11) Extremities: no pedal edema, no calf tenderness, slow capillary refill 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, no motor/sensory deficits, alert, oriented x 3 Reflexes: 0 Bicep (R), 0 Bicep (L) Skin: normal color, warm/dry Lymphatic: no adenopathy (axillary and cervical) Data Review Labs Laboratory Tests 12/31/20 07:18: White Blood Count 8.1, Red Blood Count 4.52, Hemoglobin 14.7, Hematocrit 41, Mean Corpuscular Volume 91, Mean Corpuscular Hemoglobin 33, Mean Corpuscular Hemoglobin Concent 36, Red Cell Distribution Width 11.9, Platelet Count 215, Mean Platelet Volume 10.9, Immature Granulocyte % (Auto) 0, Neutrophils (%) (Auto) 61, Lymphocytes (%) (Auto) 30, Monocytes (%) (Auto) 6, Eosinophils (%) (Auto) 2, Basophils (%) (Auto) 1, Neutrophils # (Auto) 5.0, Lymphocytes # (Auto) 2.4, Monocytes # (Auto) 0.5, Eosinophils # (Auto) 0.2, Basophils # (Auto) 0.1, Immature Granulocyte # (Auto) 0.0, Sodium Level 140, Potassium Level 4.1, Chloride Level 107, Carbon Dioxide Level 28, Anion Gap 5, Blood Urea Nitrogen 9, Creatinine 0.80, Estimat Glomerular Filtration Rate 113, BUN/Creatinine Ratio 11, Glucose Level 91, Calcium Level 10.0, Corrected Calcium 9.7, Total Bilirubin 1.2H, Aspartate Amino Transf (AST/SGOT) 15, Alanine Aminotransferase (ALT/SGPT) 19, Alkaline Phosphatase 96, C-Reactive Protein High Sensitivity 0.09, Total Protein 7.0, Albumin 4.4, Lipase 19 12/31/20 08:05: Urine Color YELLOW, Urine Clarity CLOUDY, Urine pH 7.5, Urine Specific [place] 1.020, Urine Protein NEGATIVE, Urine Glucose (UA) NEGATIVE, Urine Ketones NEGATIVE, Urine Nitrite NEGATIVE, Urine Bilirubin NEGATIVE, Urine Urobilinogen 1.0, Urine Leukocyte Esterase NEGATIVE, Urine RBC (Auto) NEGATIVE, Urine RBC NONE, Urine WBC NONE, Urine Squamous Epithelial Cells NONE, Urine Crystals NONE, Urine Amorphous Sediment LARGE STEPHANIE PHOSPHATEH, Urine Bacteria NEGATIVE, Urine Casts NONE, Urine Mucus NEGATIVE, Urine Culture Indicated NO Assessment/Plan Assessment/Plan Assessment/Plan Epigastric pain Plan - Pain control, EGD, IV fluids & monitor chemistry ARAM ROD DO 12/31/20 1157: History of Present Illness History of Present Illness Time Seen by Provider: 09:12 History of Present Illness Surgery asked to consult regarding abdominal pain, which has not gone away. Pain was in RLQ and now is epigastric; associated with inability to take solids and now having trouble with liquids. Pt had an EGD about 3 months after Denise- Katie surgery, just before he had his gallbladder removed. He states nothing abnormal seen at that time. Allergies and Home Medications Allergies Coded Allergies: zinc (Verified Allergy, Unknown, 10/10/18) Home Medications Methocarbamol 750 Mg Tablet, 750 MG PO Q4H PRN for PAIN-MODERATE (5-7) Prescribed by: DEYSI GARCIA on 05/14/191815 Prednisone 20 Mg Tab, 40 MG PO DAILY Take 3 tabs(60mg)daily, decrease by 1/2 tab(10mg)daily. Prescribed by: DEYSI GARCIA on 05/14/191815 Tramadol HCl 50 Mg Tablet, 50 MG PO Q6H PRN for PAIN Prescribed by: ASAEL CEJA on 05/25/19 1549 Patient Home Medication List Home Medication List Reviewed: Yes Past Jhavxpz-Fayfjn-Dxoemk Hx Patient Social History Smoking Status: Former Smoker Type Used: Cigarettes Surgeries History of Surgeries: Yes Surgeries: Abdominal (Denise-en-Y gastric bypass 2019), Gallbladder (2019 in ), Orthopedic (L1-S1 laminectomy for stenosis) Respiratory History of Respiratory Disorde: No Cardiovascular History of Cardiac Disorders: No Neurological History of Neurological Disord: No Gastrointestinal History of Gastrointestinal Di: Yes Gastrointestinal Disorders: Gall Bladder Disease Musculoskeletal History of Musculoskeletal Dis: Yes (L1-S1 laminectomy) Musculoskeletal Disorders: Chronic Back Pain Endocrine History of Endocrine Disorders: No HEENT History of HEENT Disorders: No Loss of Vision: Denies Hearing Impairment: Denies Cancer History of Cancer: No Psychosocial History of Psychiatric Problem: No Integumentary History of Skin or Integumenta: No Family Medical History Significant Family History: Cancer (Uncle colon CA at 48), Other Conditions/Hx (Father has Crohn's) Review of Systems-General Constitutional: No chills; dizziness; No fever; malaise, weakness, weight loss (Planned (200lbs lost in one year)) EENTM: No blurred vision, No double vision, No mouth pain, No mouth swelling, No epistaxis Respiratory: No cough, No dyspnea on exertion, No hemoptysis, No short of breath Cardiovascular: No chest pain, No palpitations Gastrointestinal: LUQ, LLQ, abdominal pain, diarrhea (2wks - no blood); No hematemesis; vomiting Genitourinary: No decreased output, No dysuria, No frequency, No hematuria Musculoskeletal: back pain; No joint pain, No muscle pain Skin: No change in color, No change in hair/nails Psychiatric/Neurological: Denies Anxiety, Denies Depressed, Denies Numbness, Denies Seizure, Denies Tremors Other Pt denies any hx of abnormal bleeding or bruising Physical Exam-General Problems Physical Exam General Appearance: WD/WN, moderate distress Eyes: Bilateral Eye PERRL, Bilateral Eye EOMI HEENT: No scleral icterus (R), No scleral icterus (L), No pale conjunctivae (R), No pale conjunctivae (L); pharyngeal erythema (pt has been vomiting) Neck: full range of motion, supple, normal inspection Respiratory: lungs clear, normal breath sounds, no respiratory distress, no accessory muscle use Cardiovascular: regular rate, rhythm, no murmur Gastrointestinal: normal bowel sounds, soft, no organomegaly, tenderness (periumbilical to epigastric and also left laterally to umbilicus with palpation) Rectal: deferred Back: CVA tenderness (R), vertebral tenderness (near T11) Extremities: no pedal edema, no calf tenderness, slow capillary refill 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 TECHNIQUE: Multiple contiguous axial images were obtained through the abdomen and pelvis without the use of intravenous contrast. Auto Exposure Controls were utilized during the CT exam to meet ALARA standards for radiation dose reduction. INDICATION: Right lower quadrant pain. FINDINGS: The lung bases are clear. There is no effusion. The gallbladder is absent. The liver and bile ducts are normal. There are changes of prior gastric surgery. The spleen, pancreas, and adrenals are normal. The kidneys, ureters, and bladder are normal. The appendix is normal. No acute bowel abnormality is seen. There is no ascites. There is no adenopathy. There are changes of prior laminectomy from L3 through L5. There is no acute bony abnormality. IMPRESSION: No acute abnormality is seen. Dictated by: Dictated on workstation # [id number] Dict: 12/29/20924 Trans: 12/29/2048 [id number] Interpreted by: HERACLIO CLAIRE MD Electronically signed by: HERACLIO CLAIRE MD 12/29/2048 Assessment/Plan Assessment/Plan Assessment/Plan Epigastric pain Hx of Denise-Katie bypass Plan is EGD with possible biopsy, IV fluids, pain control. Pt has appt with Bariatric Surgeon on sunday and was given 3 options; 1) do nothing and see Surgeon on Sunday 2) repeat CT with contrast 3) EGD. I explained to pt that the most likely cause of his pain is ulcer or stricture at the G-J junction. He elected to have an EGD and will still follow up with his surgeon in . We discussed risks and complications; not limited to pain, bleeding, infection and even esophageal perforation. I told him that if it looked like he may need dilation, I most likely would not do it and allow his Bariatric surgeon to perform it. Because, if it perforated he would best be able to handle complications. I personally reviewed the CT from previous visit; appendix looks completely normal, no free air seen and no fluid near G-J junction (meaning low probability of leak). I also discussed his case with the ER physician. Will go ahead with EGD and p robably send pt home today. Supervisory-Addendum Brief Verification & Attestation Participated in pt care: history, MDM, physical Personally performed: exam, history, MDM, supervision of care Care discussed with: Medical Student Procedures: n/a Verification and Attestation of Medical Student E/M Service A medical student performed and documented this service. I then reviewed and verified all information documented by the medical student and made modifications to such information, when appropriate. I personally performed a physical exam, medical decision making and then discussed any differences between the notes and made revisions as necessary to create one note. Aram Rod , 12/31/20 , 12:07 LETTY IRVING Dec 31, 2020 09:40 ARAM ROD DO Dec 31, 2020 11:57
[2020-12-31] MEDS ORDERED: PROMETHAZINE INJ 25 MG/ML (PHENERGAN) AMP IVP ONE (10:45)
[2020-12-31] MEDS ORDERED: LACTATED RINGERS 1,000 ML IV STA (13:22)
[2020-12-31] MEDS ORDERED: HURRICAINE EXT TUBE (BENZOCAINE) XX PRN (13:30)
[2020-12-31] MEDS ORDERED: MIDAZOLAM 2 MG/2 ML (VERSED) VIAL ONE (13:34)
[2020-12-31] MEDS ORDERED: proPOfol 200 MG/20 ML (DIPRIVAN) VIAL IV ONE ×2 (13:35→13:36)
[2020-12-31 13:59] VITALS: BP 98/57
--- NOTE | 2020-12-31 14:02 | Progress Note-Post Operative ---
Post-Operative Progess Note Surgeon (s)/Sales Account Leader (s) Surgeon ARAM ROD DO Sales Account Leader: none Pre-Operative Diagnosis Abdominal pain, N/V, Inability to take even liquids Post-Operative Diagnosis Esophagitis Procedure & Operative Findings Date of Procedure 12/31/20 Procedure Performed/Findings EGD with biopsy PROCEDURE NOTE: After informed consent was obtained, the patient was brought to the endoscopy suite, placed in bed in left lateral decubitus position. He was administered IV sedation by the FRONT END ARCHITECT who then monitored vitals the entire time, heart rate, blood pressure and pulse ox and the scope was inserted down the mouth through the esophagus into the stomach. On the way down, noted some mild esophagitis, took a picture, pushed into the remnant of the stomach and could see the jejunal anastomosis. No ulcer or stricturing seen. Went down the Denise limb quite a ways and it all looked normal. Pulled back and did a biopsy of the GE junction. Suctioned all the air out of the stomach. At this point pulled the scope up the esophagus and out the mouth. The patient tolerated the procedure, and he recovered in endoscopy suite. Anesthesia Type IV sedation by anesthesia Estimated Blood Loss Estimated blood loss (mL): scant Specimens/Packing Specimens Removed GE jxn bx ARAM ROD DO Dec 31, 2020 14:02
--- NOTE | 2020-12-31 14:03 | Endoscopy Discharge Instruct ---
Endo Procedure/Findings Findings 1.: Other Findings (esophagitis - mild) Discharge Instructions - Activity: You might feel a little sleepy until tomorrow. This is due to the medicine you received to relax you. Until tomorrow, you should: NOT drive a car, operate machinery or power tools. NOT drink any alcoholic beverages. NOT make any important decisions or sign importortant papers. Do not return to work until tomorrow, unless otherwise instructed. Resume previous activities tomorrow. Diet: Start by taking liquids. If you tolerate liquids, advance to solid food. 1.: EGD in 3 years Notify Physician - If you experience excessive bleeding, unusual abdominal pain, fever, or chest pain, contact your doctor immediately. ARAM ROD DO Dec 31, 2020 14:03
[2020-12-31 14:04] VITALS: BP 91/60
[2020-12-31 14:09] VITALS: BP 111/75
[2020-12-31 14:10] VITALS: BP 111/75
[2020-12-31 14:40] VITALS: BP 102/65
[2020-12-31 15:00] VITALS: BP 102/65
--- NOTE | 2020-12-31 15:02 | Anesthesia-General Post-Op ---
MAC Patient Condition Mental Status/LOC: Same as Preop Cardiovascular: Satisfactory Nausea/Vomiting: Absent Respiratory: Satisfactory Pain: Controlled Complications: Absent Post Op Complications Complications None Follow Up Care/Instructions Patient Instructions None needed. Anesthesiology Discharge Order Discharge Order Patient is doing well, no complaints, stable vital signs, no apparent adverse anesthesia problems. DANYEL KING DO Dec 31, 2020 15:02
== END 2020-12-31 15:00 | disposition home or self-care (01) ==
LOC: EDUNIT# 06:51 → ER 06:55 → SDC 12:48
PROVIDERS: ATTEND Surgery
DX: K21.00 Gastro-esophageal reflux disease with esophagitis, without bleeding (principal); I10 Essential (primary) hypertension; G89.29 Other chronic pain; M54.9 Dorsalgia, unspecified; G47.9 Sleep disorder, unspecified; Z87.891 Personal history of nicotine dependence; Z98.0 Intestinal bypass and anastomosis status; Z79.899 Other long term (current) drug therapy; Z98.84 Bariatric surgery status; Z80.0 Family history of malignant neoplasm of digestive organs; Z83.79 Family history of other diseases of the digestive system
CPT/HCPCS: 36415; 80053; 81000; 83690; 85025; 86141; 87636; 96361; 96374; 96375; 96376

== ENCOUNTER 2021-05-24 19:44 | Emergency (ER) | payer MEDICAID ==
[~2021-05-24] VITALS: Ht 185.5 cm; Wt 95.3 kg
[~2021-05-24 19:44] MED LIST changes: +CYCL10TA25; +CYCL10TA25 PO; -CYCL10TA9; -CYCL10TA9 PO; -DICL25TA PO; +DICL25TA9 PO
[2021-05-24 19:55] VITALS: BP 129/81
--- NOTE | 2021-05-24 20:09 | ED Cough/URI ---
General Chief Complaint: COVID19 Suspect/Confirmed Stated Complaint: SORE THROAT, COUGH, CONGESTION, CHEST PAIN, SOA Source: patient History of Present Illness Date Seen by Provider: May 24, 2021 Time Seen by Provider: 20:05 Initial Comments PT ARRIVES VIA POV FROM HOME PT STATES HE HAS BEEN SICK FOR A WEEK WITH COVID-19 SYMPTOMS WENT TO [facility] A WEEK AGO AND TESTED NEGATIVE, NO RX'S GIVEN C/O SUBJECTIVE FEVER C/O BODY ACHES C/O SORE THROAT C/O COUGH/CONGESTION C/O CHEST DISCOMFORT C/O SHORTNESS OF BREATH C/O HEADACHE HAS BEEN TAKING ROBITUSSIN AND TYLENOL SYMPTOMS NOT ANY BETTER, SO CAME TO ER ANUJUAN HAS NOT ATTEMPTED TO FOLLOW UP WITH [facility] AT ANY TIME SINCE LAST WEEK. 5 OTHER PEOPLE LIVE IN HOME WITH PATIENT, INCLUDING A NIECE--SHE TESTED POSITIVE FOR COVID-19 ABOUT 2 WEEKS AGO. NO ONE ELSE IS CURRENTLY ILL PT WORKS IN [email or web address] PT HAS NOT HAD COVID OR FLU VACCINES PCP: [facility] Allergies and Home Medications Allergies Coded Allergies: zinc (Verified Allergy, Unknown, 10/10/18) Patient Home Medication List Home Medication List Reviewed: Yes Citalopram Hydrobromide (Citalopram HBr) 20 Mg Tablet, (Reported) Entered as Reported by: MYA HENRY on 05/25/19 1520 Cyclobenzaprine HCl (Cyclobenzaprine HCl) 10 Mg Tablet, (Reported) Entered as Reported by: MYA HENRY on 05/25/19 1520 Duloxetine HCl (Duloxetine HCl) 30 Mg Capsule., (Reported) Entered as Reported by: MYA HENRY on 05/14/19 171 Ibuprofen (Ibuprofen) 800 Mg Tablet, (Reported) Entered as Reported by: MYA HENRY on 05/25/19 1520 Losartan/Hydrochlorothiazide (Losartan-Hctz 100-12.5 mg Tab) 1 Each Tablet, (Reported) Entered as Reported by: MYA HENRY on 05/14/19 171 Methocarbamol (Robaxin-750) 750 Mg Tablet, 750 MG PO Q4H PRN for PAIN-MODERATE (5-7) Prescribed by: DEYSI GARCIA on 05/14/19 1816 Methocarbamol (Methocarbamol) 750 Mg Tablet, (Reported) Entered as Reported by: MYA HENRY on 05/25/19 1520 Prednisone (Prednisone) 20 Mg Tab, 40 MG PO DAILY Prescribed by: DEYSI GARCIA on 05/14/19 1816 Tramadol HCl (Tramadol HCl) 50 Mg Tablet, 50 MG PO Q6H PRN for PAIN Prescribed by: ASAEL CEJA on 05/25/19 1549 [Trazodone] , (Reported) Entered as Reported by: MYA HENRY on 05/25/19 1520 Review of Systems Review of Systems Constitutional: see HPI, fever, malaise, weakness EENTM: see HPI, nose congestion, throat pain Respiratory: see HPI, cough, short of breath Cardiovascular: see HPI, chest pain Gastrointestinal: no symptoms reported Genitourinary: no symptoms reported Musculoskeletal: see HPI Skin: no symptoms reported Psychiatric/Neurological: See HPI, Headache Hematologic/Lymphatic: No Symptoms Reported Immunological/Allergic: no symptoms reported Past Ppwcvkj-Dpxktc-Gusepz Hx Immunizations Up To Date Tetanus Booster (TDap): Unknown Second COVID19 Vaccination Souleymane: NA Seasonal Allergies Seasonal Allergies: No Past Medical History Surgery/Hospitalization HX: GASTRIC BYPASS AND GALLBLADDER REMOVAL IN 2019, SPINAL SURGERY IN 2018 EGD 12/31/2020 Surgeries: Yes Abdominal, Gallbladder, Orthopedic Respiratory: No Cardiac: Yes Hypertension Neurological: Yes (spinal stenosis) Genitourinary: No Gastrointestinal: Yes (GASTRIC BYPASS) Gall Bladder Disease Musculoskeletal: Yes (SCIATICA, spinal stenosis; S/P BACK SURGERY) Degenerate Disk Disease, Chronic Back Pain Endocrine: Yes (MORBID OBESITY--S/P GASTRIC BYPASS) HEENT: No Loss of Vision: Denies Hearing Impairment: Denies Cancer: No Psychosocial: Yes Sleep Difficulties, Anxiety Integumentary: No Blood Disorders: No Family Medical History Cancer, Other Conditions/Hx Physical Exam Vital Signs - First Documented Capillary Refill : Height: 6'1.00" Weight: 345lbs. oz. 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, no motor/sensory deficits, alert, normal mood/affect, oriented x 3 Skin: normal color, warm/dry Progress/Results/Core Measures Suspected Sepsis SIRS Temperature: Pulse: Respiratory Rate: Blood Pressure / Mean: Results/Orders Lab Results Laboratory Tests Test 05/24/21 20:00 Range/Units Influenza Type A (RT-PCR) Detected H Not Detecte Influenza Type B (RT-PCR) Detected H Not Detecte SARS-CoV-2 RNA (RT-PCR) Detected H Not Detecte My Orders Orders - NANCY GUERRERO DO Covid 19 Inhouse Test (05/24/21 20:04) Influenza A And B By Pcr (05/24/21 20:04) Isolation Central Supply Req (05/24/21 20:04) Vital Signs/I&O 05/24/21 05/24/21 19:55 19:55 Temp 37.2 Pulse 83 Resp 18 B/P (MAP) 129/81 (97) Pulse Ox 100 O2 Delivery Room Air Room Air Capillary Refill : Progress Note : Progress Note PLACED IN ISOLATION ROOM PPE WORN AT ALL TIMES COVID-19 TESTING DONE NO COUGH NO DYSPNEA NO HYPOXIA--O2 SAT 100% ON ROOM AIR NO FEVER ADVISED OF NEED FOR QUARANTINE--PT HAS NOT BEEN QUARANTINING, EVEN WHEN NIECE TESTED POSITIVE Departure Impression Primary Impression: COVID-19 virus infection Additional Impressions: Influenza A Influenza B Disposition: 01 HOME, SELF-CARE Condition: Stable Departure-Patient Inst. Decision time for Depature: 21:26 Referrals: [facility] (PCP/Family) Primary Care Physician Patient Instructions: COVID-19 (DC), Preventing the Spread of an Infectious Disease, Flu, Adult ED Add. Discharge Instructions: LOTS OF CLEAR LIQUIDS TYLENOL AND MOTRIN NEEDED FOR PAIN OR FEVER OVER THE COUNTER MEDICATIONS FOR COUGH AND CONGESTION FOLLOW UP WITH [facility] IN 4-5 DAYS IF NO BETTER, RETURN TO ER IF WORSE CONTINUE QUARANTINE FOR AND ADDITIONAL 5 DAYS. All discharge instructions reviewed with patient and/or family. Voiced understan ding. NANCY GUERRERO DO May 24, 2021 20:09
== END 2021-05-24 21:45 | disposition home or self-care (01) ==
LOC: EDUNIT# 19:44 → ER 19:46
DX: U07.1 COVID-19 (principal); I10 Essential (primary) hypertension; G89.29 Other chronic pain; M54.9 Dorsalgia, unspecified; F41.9 Anxiety disorder, unspecified; Z79.891 Long term (current) use of opiate analgesic; Z79.899 Other long term (current) drug therapy
CPT/HCPCS: 87636; 99283

== ENCOUNTER 2021-11-24 22:00 | Emergency (ER) | payer MEDICAID ==
[~2021-11-24] VITALS: Ht 185.5 cm; Wt 95.0 kg
--- NOTE | 2021-11-24 22:13 | ED General ---
General Chief Complaint: Glucose Problems Stated Complaint: NAUSEA History of Present Illness Date Seen by Provider: Nov 24, 2021 Time Seen by Provider: 22:12 Initial Comments 29-year-old male with PMH of gastric bypass surgery and known hypoglycemia, is brought in by EMS with complaints of low blood sugar causing diaphoresis, lightheadedness, feeling of panic. This occurred today after patient had a small candy bar. Denies any known allergies, fever, shortness of breath, palpitations, headache, falls, LOC. Patient was given D10 boluses by EMS because his blood sugar was 50. In the ER on glucometer blood sugar increased to 130. Patient's symptoms resolved after being given dextrose and he has no complaints in the ER. Allergies and Home Medications Allergies Coded Allergies: zinc (Verified Allergy, Unknown, 10/10/18) Patient Home Medication List Home Medication List Reviewed: Yes Citalopram Hydrobromide (Citalopram HBr) 20 Mg Tablet, (Reported) Entered as Reported by: MYA HENRY on 05/25/19 1520 Cyclobenzaprine HCl (Cyclobenzaprine HCl) 10 Mg Tablet, (Reported) Entered as Reported by: MYA HENRY on 05/25/19 1520 Duloxetine HCl (Duloxetine HCl) 30 Mg Capsule., (Reported) Entered as Reported by: MYA HENRY on 05/14/19 171 Ibuprofen (Ibuprofen) 800 Mg Tablet, (Reported) Entered as Reported by: MYA HENRY on 05/25/19 1520 Losartan/Hydrochlorothiazide (Losartan-Hctz 100-12.5 mg Tab) 1 Each Tablet, (Reported) Entered as Reported by: MYA HENRY on 05/14/19 1716 Methocarbamol (Robaxin-750) 750 Mg Tablet, 750 MG PO Q4H PRN for PAIN-MODERATE (5-7) Prescribed by: DEYSI GRACIA on 05/14/19 181 Methocarbamol (Methocarbamol) 750 Mg Tablet, (Reported) Entered as Reported by: MYA HENRY on 05/25/19 1520 Prednisone (Prednisone) 20 Mg Tab, 40 MG PO DAILY Prescribed by: DEYSI GARCIA on 05/14/19 181 Tramadol HCl (Tramadol HCl) 50 Mg Tablet, 50 MG PO Q6H PRN for PAIN Prescribed by: ASAEL CEJA on 05/25/19 1549 [Trazodone] , (Reported) Entered as Reported by: MYA HENRY on 05/25/19 1520 Review of Systems Review of Systems Constitutional: no symptoms reported EENTM: no symptoms reported Respiratory: no symptoms reported Cardiovascular: no symptoms reported Gastrointestinal: no symptoms reported Genitourinary: no symptoms reported Musculoskeletal: no symptoms reported Skin: no symptoms reported Psychiatric/Neurological: No Symptoms Reported Hematologic/Lymphatic: No Symptoms Reported Immunological/Allergic: no symptoms reported Past Uxhyfsb-Thzgpv-Qxzidu Hx Immunizations Up To Date Tetanus Booster (TDap): Unknown Second COVID19 Vaccination Souleymane: NA Seasonal Allergies Seasonal Allergies: No Past Medical History Surgery/Hospitalization HX: GASTRIC BYPASS AND GALLBLADDER REMOVAL IN 2019, SPINAL SURGERY IN 2017 EGD 12/31/2020 Surgeries: Yes Abdominal, Gallbladder, Orthopedic Respiratory: No Cardiac: Yes Hypertension Neurological: Yes (spinal stenosis) Genitourinary: No Gastrointestinal: Yes (GASTRIC BYPASS) Gall Bladder Disease Musculoskeletal: Yes (SCIATICA, spinal stenosis; S/P BACK SURGERY) Degenerate Disk Disease, Chronic Back Pain Endocrine: Yes (MORBID OBESITY--S/P GASTRIC BYPASS) HEENT: No Loss of Vision: Denies Hearing Impairment: Denies Cancer: No Psychosocial: Yes Sleep Difficulties, Anxiety Integumentary: No Blood Disorders: No Family Medical History Cancer, Other Conditions/Hx Physical Exam Vital Signs Capillary Refill : Height, Weight, BMI Height: 6'1.00" Weight: 345lbs. oz. 156.341660zm; 27.00 BMI Method:Stated General Appearance: No Apparent Distress HEENT: PERRL/EOMI, Normal ENT Inspection Neck: Normal Inspection Respiratory: Chest Non Tender, Lungs Clear, Normal Breath Sounds Cardiovascular: Regular Rate, Rhythm, No Edema Gastrointestinal: Normal Bowel Sounds, Non Tender, Soft Back: No CVA Tenderness Neurologic/Psychiatric: Alert, Oriented x3, No Motor/Sensory Deficits, Normal Mood/Affect Skin: Normal Color, Warm/Dry Progress/Results/Core Measures Suspected Sepsis SIRS Temperature: Pulse: Respiratory Rate: Laboratory Tests 11/24/21 22:08: White Blood Count 10.0 Blood Pressure / Mean: Laboratory Tests 11/24/21 22:08: Creatinine 0.79, Platelet Count 225, Total Bilirubin 0.6 Results/Orders Lab Results Laboratory Tests Test 11/24/21 22:08 11/24/21 22:10 11/24/21 22:16 11/24/21 22:23 Range/Units White Blood Count 10.0 4.3-11.0 10^3/uL Red Blood Count 5.04 4.30-5.52 10^6/uL Hemoglobin 16.2 13.3-17.7 g/dL Hematocrit 45 40-54 % Mean Corpuscular Volume 90 80-99 fL Mean Corpuscular Hemoglobin 32 25-34 pg Mean Corpuscular Hemoglobin Concent 36 32-36 g/dL Red Cell Distribution Width 12.2 10.0-14.5 % Platelet Count 225 130-400 10^3/uL Mean Platelet Volume 11.5 9.0-12.2 fL Immature Granulocyte % (Auto) 0 % Neutrophils (%) (Auto) 46 42-75 % Lymphocytes (%) (Auto) 42 12-44 % Monocytes (%) (Auto) 9 0-12 % Eosinophils (%) (Auto) 3 0-10 % Basophils (%) (Auto) 1 0-10 % Neutrophils # (Auto) 4.6 1.8-7.8 10^3/uL Lymphocytes # (Auto) 4.2 H 1.0-4.0 10^3/uL Monocytes # (Auto) 0.9 0.0-1.0 10^3/uL Eosinophils # (Auto) 0.3 0.0-0.3 10^3/uL Basophils # (Auto) 0.1 0.0-0.1 10^3/uL Immature Granulocyte # (Auto) 0.0 0.0-0.1 10^3/uL Sodium Level 144 135-145 MMOL/L Potassium Level 3.5 L 3.6-5.0 MMOL/L Chloride Level 108 H 98-107 MMOL/L Carbon Dioxide Level 21 21-32 MMOL/L Anion Gap 15 H 5-14 MMOL/L Blood Urea Nitrogen 13 7-18 MG/DL Creatinine 0.79 0.60-1.30 MG/DL Estimat Glomerular Filtration Rate 121 BUN/Creatinine Ratio 16 Glucose Level 45 *L 70-105 MG/DL Calcium Level 9.5 8.5-10.1 MG/DL Corrected Calcium 8.5-10.1 MG/DL Magnesium Level 2.1 1.6-2.4 MG/DL Total Bilirubin 0.6 0.1-1.0 MG/DL Aspartate Amino Transf (AST/SGOT) 20 5-34 U/L Alanine Aminotransferase (ALT/SGPT) 16 0-55 U/L Alkaline Phosphatase 106 40-136 U/L Total Protein 7.3 6.4-8.2 GM/DL Albumin 4.6 H 3.2-4.5 GM/DL Serum Alcohol < 10 <10 MG/DL Glucometer 104 70-110 MG/DL Urine Opiates Screen NEGATIVE NEGATIVE Urine Oxycodone Screen NEGATIVE NEGATIVE Urine Methadone Screen NEGATIVE NEGATIVE Urine Propoxyphene Screen NEGATIVE NEGATIVE Urine Barbiturates Screen NEGATIVE NEGATIVE Ur Tricyclic Antidepressants Screen NEGATIVE NEGATIVE Urine Phencyclidine Screen NEGATIVE NEGATIVE Urine Amphetamines Screen NEGATIVE NEGATIVE Urine Methamphetamines Screen NEGATIVE NEGATIVE Urine Benzodiazepines Screen NEGATIVE NEGATIVE Urine Cocaine Screen NEGATIVE NEGATIVE Urine Cannabinoids Screen NEGATIVE NEGATIVE Urine Color YELLOW Urine Clarity CLEAR Urine pH 6.0 5-9 Urine Specific [place] >=1.030 1.016-1.022 Urine Protein NEGATIVE NEGATIVE Urine Glucose (UA) NEGATIVE NEGATIVE Urine Ketones NEGATIVE NEGATIVE Urine Nitrite NEGATIVE NEGATIVE Urine Bilirubin NEGATIVE NEGATIVE Urine Urobilinogen 1.0 < = 1.0 MG/DL Urine Leukocyte Esterase NEGATIVE NEGATIVE Urine RBC (Auto) NEGATIVE NEGATIVE Urine RBC RARE /HPF Urine WBC NONE /HPF Urine Squamous Epithelial Cells NONE /HPF Urine Crystals NONE /LPF Urine Bacteria TRACE /HPF Urine Casts NONE /LPF Urine Mucus MODERATE H /LPF Urine Culture Indicated NO My Orders Orders - LISA RICH MD Alcohol (11/24/21 22:13) Cbc With Automated Diff (11/24/21 22:13) Comprehensive Metabolic Panel (11/24/21 22:13) Drug Screen Stat (Urine) (11/24/21 22:13) Magnesium (11/24/21 22:13) Ua Culture If Indicated (11/24/21 22:13) Troponin I Андрей (11/24/21 22:26) Ekg Tracing (11/24/21 22:26) Vital Signs/I&O Capillary Refill : Progress Note : Progress Note 1. HYPOGLYCEMIA: - Troponin/ EKG normal - CBC/ CMP normal - UA normal - Blood sugar at 130 in ER - Advised pt to keep snacks with him - Follow up with PCP in 3 to 5 days -The patient was seen in the ED, and treated appropriately to presentation at a specific point in time. Patient is informed that there is a possibility that disease and illness can evolve and change in acuity rapidly or slowly after patient is discharged from the ER. Precautionary advice given to the patient for immediate return to ER if symptoms worsen or do not resolve, and to seek emergency care sooner rather than later. Pt also advised on the importance of PCP follow up and compliance with management and follow up plan with PCP and/or specialist, as this is part of the management plan. Pt verbally expressed understanding. ECG Initial ECG Impression Date: Nov 24, 2021 Initial ECG Impression Time: 22:33 Initial ECG Rate: 70 Initial ECG Rhythm: Normal Sinus Initial ECG Intervals: Normal Initial ECG Impression: Normal Departure Impression Primary Impression: Hypoglycemia Disposition: 01 HOME, SELF-CARE Condition: Improved Departure-Patient Inst. Referrals: [facility] (PCP/Family) Primary Care Physician Patient Instructions: Low Blood Sugar, Adult (DC), Low Blood Sugar in People Without Diabetes Add. Discharge Instructions: - Advised pt to keep snacks with him - Follow up with PCP in 3 to 5 days All discharge instructions reviewed with patient and/or family. Voiced understanding. LISA RICH MD Nov 24, 2021 22:13
[2021-11-24 22:18] LABS: BASOPHILS # (AUTO) 0.1 10^3/uL (0.0-0.1); BASOPHILS % (AUTO) 1 % (0-10); EOSINOPHILS # (AUTO) 0.3 10^3/uL (0.0-0.3); EOSINOPHILS % (AUTO) 3 % (0-10); HEMATOCRIT 45 % (40-54); HEMOGLOBIN 16.2 g/dL (13.3-17.7); LYMPHOCYTES # (AUTO) 4.2 10^3/uL (1.0-4.0); LYMPHOCYTES % (AUTO) 42 % (12-44); MEAN CORPUSCULAR HEMOGLOBIN 32 pg (25-34); MEAN CORPUSCULAR HGB CONC 36 g/dL (32-36); MEAN CORPUSCULAR VOLUME 90 fL (80-99); MEAN PLATELET VOLUME 11.5 fL (9.0-12.2); MONOCYTES # (AUTO) 0.9 10^3/uL (0.0-1.0); MONOCYTES % (AUTO) 9 % (0-12); NEUTROPHILS # (AUTO) 4.6 10^3/uL (1.8-7.8); NEUTROPHILS % (AUTO) 46 % (42-75); PLATELET COUNT 225 10^3/uL (130-400)
[2021-11-24 22:33] LABS: BILIRUBIN,URINE NEGATIVE (NEGATIVE); CLARITY,URINE CLEAR; COLOR,URINE YELLOW; GLUCOSE, URINE (UA) NEGATIVE (NEGATIVE); KETONES,URINE NEGATIVE (NEGATIVE); LEUKOCYTE ESTERASE ,URINE NEGATIVE (NEGATIVE); NITRITE,URINE NEGATIVE (NEGATIVE); PROTEIN,URINE NEGATIVE (NEGATIVE)
[2021-11-24 22:45] LABS: BACTERIA,URINE TRACE /HPF; RBC,URINE RARE /HPF
[2021-11-24 22:47] LABS: ALBUMIN 4.6 GM/DL (3.2-4.5); CHLORIDE 108 MMOL/L (98-107); POTASSIUM 3.5 MMOL/L (3.6-5.0); SODIUM 144 MMOL/L (135-145)
[2021-11-24 22:48] LABS: CALCIUM 9.5 MG/DL (8.5-10.1)
[2021-11-24 22:49] LABS: TOTAL PROTEIN 7.3 GM/DL (6.4-8.2)
[2021-11-24 22:50] LABS: CARBON DIOXIDE 21 MMOL/L (21-32)
[2021-11-24 22:50] LABS: AMPHETAMINE SCREEN, URINE NEGATIVE (NEGATIVE); BARBITURATE SCREEN URINE NEGATIVE (NEGATIVE); BENZODIAZEPINES SCREEN URINE NEGATIVE (NEGATIVE); CANNABINOID SCREEN, URINE NEGATIVE (NEGATIVE); COCAINE SCREEN URINE NEGATIVE (NEGATIVE); METHADONE STAT NEGATIVE (NEGATIVE); OPIATE SCREEN URINE NEGATIVE (NEGATIVE); OXYCODONE STAT NEGATIVE (NEGATIVE); PROPOXYPHENE STAT NEGATIVE (NEGATIVE); TRICYCLIC ANTIDEPRESSANTS SCRE NEGATIVE (NEGATIVE)
[2021-11-24 22:51] LABS: BILIRUBIN,TOTAL 0.6 MG/DL (0.1-1.0)
[2021-11-24 22:53] LABS: ALKALINE PHOSPHATASE 106 U/L (40-136); CREATININE SERUM 0.79 MG/DL (0.60-1.30); GFR ESTIMATED 121
[2021-11-24 22:54] LABS: BUN/CREATININE RATIO 16
[2021-11-24 22:56] LABS: ALANINE AMINOTRANSFERASE 16 U/L (0-55); MAGNESIUM 2.1 MG/DL (1.6-2.4)
[2021-11-24 23:02] LABS: GLUCOSE 45 MG/DL (70-105)
[2021-11-24 23:35] VITALS: BP 111/87
== END 2021-11-24 23:35 | disposition home or self-care (01) ==
LOC: EDUNIT# 22:00 → ER 22:02
DX: E16.2 Hypoglycemia, unspecified (principal); E66.01 Morbid (severe) obesity due to excess calories; Z68.27 Body mass index [BMI] 27.0-27.9, adult; Z28.310 Unvaccinated for COVID-19
CPT/HCPCS: 36415; 80053; 80306; 80320; 81000; 82947; 83735; 85025; 93005

== ENCOUNTER 2022-04-13 19:43 | Emergency (ER) | payer MEDICAID ==
[2022-04-13 20:17] VITALS: BP 148/91
[2022-04-13] MEDS ORDERED: RX-AMOXICILLIN 500 MG CAP #3 PPK PO STA (20:43)
[2022-04-13] MEDS ORDERED: TRM50T PO (20:46)
[2022-04-13] MEDS ORDERED: AMOX875T2 PO (20:46)
--- NOTE | 2022-04-13 20:47 | ED EENT ---
History of Present Illness General Chief Complaint: Dental Problems/Pain Stated Complaint: TOOTH CRACKED/DENTAL PAIN Nursing Triage Note: TO ED VIA POV AND AMBULATORY WITH C/O CRACKED RIGHT WISDOM TOOTH. HAS TRIED ORAJEL AND WHISKEY WITHOUT RELIEF. Source: patient History of Present Illness Date Seen by Provider: Apr 13, 2022 Time Seen by Provider: 20:33 Initial Comments PT ARRIVES VIA POV C/O DENTAL PAIN FOR > 1 MONTH, WORSE THE LAST FEW DAYS HAS HAD "CRACKED TOOTH" --RIGHT LOWER MOLAR AREA NO FEVER NO SWELLING TO FACE. TOOK TYLENOL X 1 AT [facility] TODAY. TRIED ORAJEL AND WHISKEY FOR THE PAIN NO RELIEF WITH THE ABOVE MEASURES. HAS NOT ATTEMPTED TO CONTACT DENTIST FOR THIS PROBLEM PT HAS HAD PRIOR BARIATRIC SURGERY, SO HE CANNOT TAKE NSAIDS. PCP: DR. CHANDLER AT [facility] Allergies and Home Medications Allergies Coded Allergies: zinc (Verified Allergy, Unknown, 10/10/18) Patient Home Medication List Home Medication List Reviewed: Yes Amoxicillin (Amoxicillin) 875 Mg Tablet, 875 MG PO BID Prescribed by: NANCY GUERRERO on 04/13/222045 Citalopram Hydrobromide (Citalopram HBr) 20 Mg Tablet, (Reported) Entered as Reported by: MYA HENRY on 05/25/19 1520 Cyclobenzaprine HCl (Cyclobenzaprine HCl) 10 Mg Tablet, (Reported) Entered as Reported by: MYA HENRY on 05/25/19 1520 Duloxetine HCl (Duloxetine HCl) 30 Mg Capsule., (Reported) Entered as Reported by: YMA HENRY on 05/14/19 1716 Ibuprofen (Ibuprofen) 800 Mg Tablet, (Reported) Entered as Reported by: MYA HENRY on 05/25/19 1520 Losartan/Hydrochlorothiazide (Losartan-Hctz 100-12.5 mg Tab) 1 Each Tablet, (Reported) Entered as Reported by: MYA HENRY on 05/14/19 1716 Methocarbamol (Robaxin-750) 750 Mg Tablet, 750 MG PO Q4H PRN for PAIN-MODERATE (5-7) Prescribed by: DEYSI GARCIA on 05/14/19 1816 Methocarbamol (Methocarbamol) 750 Mg Tablet, (Reported) Entered as Reported by: MYA HENRY on 05/25/19 1520 Prednisone (Prednisone) 20 Mg Tab, 40 MG PO DAILY Prescribed by: DEYSI GARCIA on 05/14/19 1816 Tramadol HCl (Tramadol HCl) 50 Mg Tablet, 50 MG PO Q6H PRN for PAIN Prescribed by: ASAEL CEJA on 05/25/19 1549 Tramadol HCl (Tramadol HCl) 50 Mg Tablet, 50 MG PO Q6H PRN for PAIN Prescribed by: NANCY GUERRERO on 04/13/222046 [Trazodone] , (Reported) Entered as Reported by: MYA HENRY on 05/25/19 1520 Review of Systems Review of Systems Constitutional: no symptoms reported Mouth: see HPI Throat: no symptoms reported Skin: no symptoms reported Neurological: No Symptoms Reported Past Bayguyi-Tsahur-Vnckyx Hx Patient Social History Tobacco Use?: No Additional substance use comme: PAST HX Alcohol Use?: Yes Alcohol Frequency: Once in a while Immunizations Up To Date Tetanus Booster (TDap): Unknown First/Initial COVID19 Vaccinat: NA Second COVID19 Vaccination Souleymane: NA Third COVID19 Vaccination Date: NA 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, 3 TOTAL VACCINES Seasonal Allergies Seasonal Allergies: No Past Medical History Surgery/Hospitalization HX: GASTRIC BYPASS AND GALLBLADDER REMOVAL IN 2019, SPINAL SURGERY IN 2017 EGD 12/31/2020 Surgeries: Yes Abdominal, Gallbladder, Orthopedic Respiratory: No Cardiac: Yes Hypertension Neurological: Yes (spinal stenosis) Genitourinary: No Gastrointestinal: Yes (GASTRIC BYPASS) Gall Bladder Disease Musculoskeletal: Yes (SCIATICA, spinal stenosis; S/P BACK SURGERY) Degenerate Disk Disease, Chronic Back Pain Endocrine: Yes (MORBID OBESITY--S/P GASTRIC BYPASS) HEENT: No Loss of Vision: Denies Hearing Impairment: Denies Cancer: No Psychosocial: Yes Sleep Difficulties, Anxiety Integumentary: No Blood Disorders: No Family Medical History Cancer, Other Conditions/Hx Physical Exam Vital Signs Vital Signs - First Documented 04/13/22 20:17 Temp 36.9 Pulse 73 Resp 16 B/P (MAP) 148/91 (110) Pulse Ox 100 O2 Delivery Room Air Height, Weight, BMI Height: 6'1.00" Weight: 345lbs. oz. 156.858882jc; 27.00 BMI Method:Stated General Appearance: WD/WN, no apparent distress Eyes: bilateral eye normal inspection Mouth/Throat: pharynx normal, dental tenderness; No excessive drooling, No mandibular swelling, No maxillary swelling; other (RIGHT LOWER MOLAR WITH EXTENSIVE DECAY DOWN TO GUM LINE, WITH WHAT APPEARS TO BE PIECES OF THE TOOTH BROKEN OFF DUE TO THE DECAY. VERY MILD ADJACENT GUM SWELLING AND ERYTHEMA. NO FLUCTUANCE OR DRAINAGE. NO FACIAL SWELLING OR ERYTHEMA. 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 Departure Impression Primary Impression: DENTAL CARIES WITH BROKEN TOOTH Disposition: 01 HOME, SELF-CARE Condition: Stable Departure-Patient Inst. Decision time for Depature: 20:44 Referrals: [facility] (PCP/Family) Primary Care Physician Patient Instructions: Tooth Decay, Adult (DC), Fractured Tooth (DC) Add. Discharge Instructions: WARM SALT WATER SWISHES FREQUENTLY CONTINUE ORAJEL FOR PAIN TYLENOL 1 GRAM 4 TIMES A DAY FOR PAIN FOLLOW UP WITH DENTIST SOON POSSIBLE--CALL IN THE MORNING TO SCHEDULE APPOINTMENT All discharge instructions reviewed with patient and/or family. Voiced understanding. Scripts Tramadol HCl (Tramadol HCl) 50 Mg Tablet 50 MG PO Q6H PRN for PAIN, #5 TAB 0 Refills Prov: NANCY GUERRERO DO 04/13/22 Amoxicillin (Amoxicillin) 875 Mg Tablet 875 MG PO BID, #20 TAB Prov: NANCY GUERRERO DO 04/13/22 NANCY GUERRERO DO Apr 13, 2022 20:47
== END 2022-04-13 20:50 | disposition home or self-care (01) ==
LOC: EDUNIT# 19:43 → ER 19:45
DX: K02.9 Dental caries, unspecified (principal); K03.81 Cracked tooth
CPT/HCPCS: 99283

== ENCOUNTER 2022-10-07 19:17 | Emergency (ER) | payer MEDICAID ==
[~2022-10-07] VITALS: Ht 185.5 cm; Wt 102.1 kg
[~2022-10-07 19:17] MED LIST changes: +AMOX875T2 PO
[2022-10-07] MEDS ORDERED: KETO10TA PO (20:19)
--- NOTE | 2022-10-07 20:19 | ED EENT ---
History of Present Illness General Chief Complaint: Dental Problems/Pain Stated Complaint: TOOTH PAIN Source: patient Exam Limitations: no limitations History of Present Illness Date Seen by Provider: Oct 07, 2022 Time Seen by Provider: 20:09 Initial Comments 31-year-old male presents the emergency department today for dental pain. Symptoms started about 2 days ago when his tooth "officially broke." He is describes a right lower premolar. He had a dental appointment about 5 days ago to check on the tooth prior to a breaking however he missed the appointment. No fevers chills. No drainage. No facial swelling. All other systems reviewed and negative except documented per HPI. Voice recognition software was used to help create this chart Allergies and Home Medications Allergies Coded Allergies: zinc (Verified Allergy, Unknown, 10/10/18) Patient Home Medication List Home Medication List Reviewed: Yes Amoxicillin (Amoxicillin) 875 Mg Tablet, 875 MG PO BID Prescribed by: NANCY GUERRERO on 04/13/22 204 Citalopram Hydrobromide (Citalopram HBr) 20 Mg Tablet, (Reported) Entered as Reported by: MYA HENRY on 05/25/19 1520 Cyclobenzaprine HCl (Cyclobenzaprine HCl) 10 Mg Tablet, (Reported) Entered as Reported by: MYA HENRY on 05/25/19 1520 Duloxetine HCl (Duloxetine HCl) 30 Mg Capsule., (Reported) Entered as Reported by: MYA HENRY on 05/14/19 1716 Ibuprofen (Ibuprofen) 800 Mg Tablet, (Reported) Entered as Reported by: MYA HENRY on 05/25/19 1520 Losartan/Hydrochlorothiazide (Losartan-Hctz 100-12.5 mg Tab) 1 Each Tablet, (Reported) Entered as Reported by: MYA HENRY on 05/14/19 1716 Methocarbamol (Robaxin-750) 750 Mg Tablet, 750 MG PO Q4H PRN for PAIN-MODERATE (5-7) Prescribed by: DEYSI GARCIA on 05/14/19 181 Methocarbamol (Methocarbamol) 750 Mg Tablet, (Reported) Entered as Reported by: MYA HENRY on 05/25/19 1520 Prednisone (Prednisone) 20 Mg Tab, 40 MG PO DAILY Prescribed by: DEYSI GARCIA on 05/14/19 1815 Tramadol HCl (Tramadol HCl) 50 Mg Tablet, 50 MG PO Q6H PRN for PAIN Prescribed by: ASAEL CEJA on 05/25/19 1549 Tramadol HCl (Tramadol HCl) 50 Mg Tablet, 50 MG PO Q6H PRN for PAIN Prescribed by: NANCY GUERRERO on 04/13/222046 [Trazodone] , (Reported) Entered as Reported by: MYA HENRY on 05/25/19 1520 Review of Systems Review of Systems Constitutional: see HPI Past Xmzdbmg-Mpkido-Urdbgz Hx Patient Social History Tobacco Use?: No Use of E-Cig and/or Vaping dev: No Substance use?: No Immunizations Up To Date Tetanus Booster (TDap): Unknown First/Initial COVID19 Vaccinat: NA Second COVID19 Vaccination Souleymane: NA Third COVID19 Vaccination Date: NA Seasonal Allergies Seasonal Allergies: No Past Medical History Surgery/Hospitalization HX: GASTRIC BYPASS AND GALLBLADDER REMOVAL IN 2019, SPINAL SURGERY IN 2017 EGD 12/31/2020 Surgeries: Yes Abdominal, Gallbladder, Orthopedic Respiratory: No Cardiac: Yes Hypertension Neurological: Yes (spinal stenosis) Genitourinary: No Gastrointestinal: Yes (GASTRIC BYPASS) Gall Bladder Disease Musculoskeletal: Yes (SCIATICA, spinal stenosis; S/P BACK SURGERY) Degenerate Disk Disease, Chronic Back Pain Endocrine: Yes (MORBID OBESITY--S/P GASTRIC BYPASS) HEENT: No Loss of Vision: Denies Hearing Impairment: Denies Cancer: No Psychosocial: Yes Sleep Difficulties, Anxiety Integumentary: No Blood Disorders: No Family Medical History Cancer, Other Conditions/Hx Physical Exam Height, Weight, BMI Height: 6'1.00" Weight: 345lbs. oz. [id number]; 27.00 BMI Method:Stated General Appearance: WD/WN, no apparent distress Eyes: bilateral eye normal inspection, bilateral eye PERRL, bilateral eye EOMI Ears: bilateral ear auricle normal, bilateral ear canal normal, bilateral ear TM normal Nose: normal inspection Mouth/Throat: normal mouth inspection, other (Right lower premolar on the posterior aspect has a decayed area. No swelling. No drainage. No submandibular pain or swelling.) Neck: non-tender, supple, normal inspection Cardiovascular: regular rate, rhythm, no murmur Respiratory: chest non-tender, lungs clear, normal breath sounds Skin: normal color, warm/dry Departure Communication (Admissions) Patient is hemodynamically stable. No evidence for infection or other complication. No evidence for Ronnie's angina. Impression Primary Impression: Dental caries Disposition: 01 HOME, SELF-CARE Condition: Stable Departure-Patient Inst. Referrals: [facility] (PCP/Family) Primary Care Physician Patient Instructions: Fractured Tooth (DC) Add. Discharge Instructions: Schedule dentist appointment at your earliest convenience. Use the Toradol as needed for pain. You may add Tylenol to this. Follow-up with your primary doctor for any nonemergent needs. Return to the emergency department for any severe concerns All discharge instructions reviewed with patient and/or family. Voiced understanding. Scripts Ketorolac Tromethamine (Ketorolac Tromethamine) 10 Mg Tablet 10 MG PO TID for Pain for 3 Days, #9 TAB Prov: DENNY RIVERA DO 10/07/22 DENNY RIVERA DO Oct 07, 2022 20:19
[2022-10-07] MEDS ORDERED: KETOROLAC 15 MG/ML VIAL IM/IV ONE (20:30)
[2022-10-07 20:41] VITALS: BP 116/74
== END 2022-10-07 20:41 | disposition home or self-care (01) ==
LOC: EDUNIT# 19:17 → ER 19:20
DX: K02.9 Dental caries, unspecified (principal); E66.01 Morbid (severe) obesity due to excess calories; Z68.27 Body mass index [BMI] 27.0-27.9, adult
CPT/HCPCS: 99284